=== PATIENT | female | born 1955 | race Caucasian/White ===

== ENCOUNTER 2017-12-01 18:13 | Emergency (ER) | payer MEDICARE, OTHER ==
[~2017-12-01] VITALS: Ht 162.6 cm; Wt 101.6 kg
[~2017-12-01 18:13] MED LIST: ACET325T9 PO; ARIP30TA4 PO; ASCO500T3 PO; ATEN50TA PO; CYCL1DRO EACHEYE; DICL100G18 TP; DIGO250T PO; DIPH25CA58 PO; DOXY100T PO; FURO40TA4 PO; GABA-586 PO; HYDR12.58 PO; LEVO112T4 PO; LEVO125T5 PO; LEVO200V9 IV; LISI2.5T PO; LORA10TA68 PO; MAGN400O7 PO; METF500T16 PO; MULT-206 PO; MULT1TAB52 PO; MUPI15CR TP; OMEG300C PO; OMEG500C3 PO; OTHER; RISP0.2519 PO; SERT100T8 PO; SOLI5TAB2 PO; TRAM50TA PO; TRAZ-85 PO; VITA200C PO; WARF-31 PO; WARF3TAB50 PO; WARF4TAB68 PO; ZOLP5TAB PO; [UNRECOGNIZED DRUG - CODE] OU
--- NOTE | 2017-12-01 18:31 | PHYS DOC ---
Past Medical History Past Medical History: A-Fib, Anxiety, Diabetes-Type II, Hypertension, Schizophrenia, Other Additional Past Medical Histor: lymphedema. Past Surgical History: Cholecystectomy, Tonsillectomy, Other Additional Past Surgical Histo: pyloric stenosis as . Alcohol Use: None Drug Use: None Adult General Chief Complaint Chief Complaint: ABNORMAL LABS [facility] HPI Patient is a 62 year old female who presents with elevated digoxin level. She states that she did not feel symptomatic today and denies any lethargy, fatigue , delirium, confusion, disorientation, weakness, abdominal pain, nausea, vomiting, visual changes. She denies any recent changes in her medication. At the nursing facility her digoxin level was found to be 2.9. She states that she has not had any chest pain or shortness of breath today. She states that yesterday she had a mild nonradiating left-sided retrosternal chest pain that she states she thought was actually in her breast itself and states that she has had this sensation multiple times in the past. Review of Systems Review of Systems Constitutional: Denies fever or chills Eyes: Denies change in visual acuity, redness, or eye pain HENT: Denies nasal congestion or sore throat Respiratory: Denies cough or shortness of breath Cardiovascular: No additional information not addressed in HPI GI: Denies abdominal pain, nausea, vomiting, bloody stools or diarrhea : Denies dysuria or hematuria Musculoskeletal: Denies back pain or joint pain Integument: Denies rash or skin lesions Neurologic: Denies headache, focal weakness or sensory changes Endocrine: Denies polyuria or polydipsia All other systems were reviewed and found to be within normal limits, except as documented in this note. Family History Family History noncontributory Allergies Allergies Allergies Coded Allergies Type Severity Reaction Last Updated Verified Penicillins Allergy Intermediate Rash 12/08/14 Yes I S O L A T I O N *CONTACT* Allergy Unknown 12/08/14 Yes Physical Exam Physical Exam GENERAL: Awake, alert, well appearing, nontoxic, pleasant, no acute distress HEAD/NECK/EYES: Normocephalic, Neck supple, PERRL, trachea midline, no JVD ENT Airway patent, mucous membranes moist RESP: Nontachypneic, no respiratory distress, normal breath sounds bilaterally CV: Mildly irregular rhythm, less than 2 second capillary refill peripherally ABD/GI: Soft, non-tender, no guarding, no rebound, no palpable pulsatile mass BACK: Inspection NL EXT: Neurovascularly intact, no deformities , bilateral lower extremity pitting edema, nontender SKIN: Warm, dry NEURO: Oriented X3, normal speech, no motor deficits, no sensory deficits, CN II - XII intact PSYCH: Cooperative, appropriate affect EKG EKG EKG interpreted by me at 1823 reveals atrial fibrillation with mildly scooped out appearance of the ST segment consistent with digoxin morphology, no STEMI, qtc 539 Radiology/Procedures Radiology/Procedures [] Course & Med Decision Making Course & Med Decision Making Pertinent Labs and Imaging studies reviewed. (See chart for details) [] Dragon Disclaimer Dragon Disclaimer This electronic medical record was generated, in whole or in part, using a voice recognition dictation system. Departure Departure Referrals: ROSA HENDERSON (PCP) HYACINTH LOCO DO Dec 01, 2017 18:31
[2017-12-01 18:47] LABS: BASO % 0 % (0-3); EOS # 0.2 x10^3/uL (0.0-0.7); EOS % 3 % (0-3); HEMATOCRIT 31.3 % (36.0-47.0); HEMOGLOBIN 10.2 g/dL (12.0-15.5); LYMPH # 1.1 x10^3/uL (1.0-4.8); LYMPH % 16 % (24-48); MEAN CORPUSCULAR HEMOGLOBIN 23 pg (25-35); MEAN CORPUSCULAR HGB CONC 33 g/dL (31-37); MEAN CORPUSCULAR VOLUME 70 fL (79-100); MONO # 0.5 x10^3/uL (0.0-1.1); MONO % 7 % (0-9); NEUT # 5.1 x10^3uL (1.8-7.7); NEUT % 74 % (31-73); PLATELET COUNT 223 x10^3/uL (140-400); RED BLOOD COUNT 4.47 x10^6/uL (3.50-5.40); WHITE BLOOD COUNT 6.9 x10^3/uL (4.0-11.0)
[2017-12-01 18:59] LABS: ANION GAP 6 (6-14); BLOOD UREA NITROGEN 20 mg/dL (7-20); BUN/CREATININE RATIO 20 (6-20); CALCIUM 8.6 mg/dL (8.5-10.1); CARBON DIOXIDE 35 mmol/L (21-32); CHLORIDE 98 mmol/L (98-107); GFR 55.8; GLUCOSE 123 mg/dL (70-99); POTASSIUM 3.2 mmol/L (3.5-5.1); SODIUM 139 mmol/L (136-145)
[2017-12-01 19:03] LABS: ALBUMIN 3.1 g/dL (3.4-5.0); ALBUMIN/GLOBULIN RATIO 0.6 (1.0-1.7); ALK PHOS 106 U/L (46-116); ALT (SGPT) 18 U/L (14-59); AST (SGOT) 16 U/L (15-37); DIG 1.1 ng/mL (0.9-2.0); TOTAL BILIRUBIN 0.4 mg/dL (0.2-1.0)
[2017-12-01] MEDS ORDERED: POTASSIUM CHLORIDE 20 MEQ TABLET.ER. PO ONE (19:45)
[2017-12-01 19:46] LABS: ANISOCYTOSIS MOD; HYPOCHROMIA MOD; PLT ESTIMATE ADEQUATE (ADEQUATE)
[2017-12-01 19:47] LABS: MICROCYTOSIS MARKED
[2017-12-01 20:46] VITALS: BP 121/74
--- NOTE | 2017-12-02 07:12 | EKG ---
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
== END 2017-12-01 21:22 | disposition home or self-care (01) ==
LOC: ER 18:13
DX: E87.6 Hypokalemia (principal); R07.2 Precordial pain; R79.89 Other specified abnormal findings of blood chemistry; I48.91 Unspecified atrial fibrillation; E11.9 Type 2 diabetes mellitus without complications; F41.9 Anxiety disorder, unspecified; I10 Essential (primary) hypertension; F20.9 Schizophrenia, unspecified; Z88.0 Allergy status to penicillin; Z91.041 Radiographic dye allergy status
CPT/HCPCS: 36415; 80053; 80162; 84484; 85025; 93005; 99285-25

== ENCOUNTER 2019-09-11 14:36 | Emergency (ER) | payer MEDICARE, MEDICAID ==
[~2019-09-11] VITALS: Ht 170.2 cm; Wt 88.0 kg
[~2019-09-11 14:36] MED LIST changes: -DICL100G18 TP; +DICL100G54 TP; -DIGO250T PO; +DIGO250T3 PO; -GABA-586 PO; +GABA300C18 PO; -LEVO112T4 PO; +LEVO112T49 PO; +MULT-445 PO; -MULT1TAB52 PO; +TRAZ-118 PO; -TRAZ-85 PO; +WARF5TAB2 PO
[2019-09-11] MEDS ORDERED: ACETAMINOPHEN 500 MG TABLET PO ONE (14:45)
[2019-09-11] MEDS ORDERED: IV NORMAL SALINE 500ML BAG 500 ML IV ONE (15:00)
[2019-09-11 15:29] LABS: BASO % 1 % (0-3); EOS % 0 % (0-3); HEMATOCRIT 28.2 % (36.0-47.0); HEMOGLOBIN 9.4 g/dL (12.0-15.5); LYMPH # 0.4 x10^3/uL (1.0-4.8); LYMPH % 11 % (24-48); MEAN CORPUSCULAR HEMOGLOBIN 23 pg (25-35); MEAN CORPUSCULAR HGB CONC 33 g/dL (31-37); MEAN CORPUSCULAR VOLUME 70 fL (79-100); MONO # 0.3 x10^3/uL (0.0-1.1); MONO % 9 % (0-9); NEUT # 3.2 x10^3/uL (1.8-7.7); NEUT % 80 % (31-73); PLATELET COUNT 213 x10^3/uL (140-400); RED BLOOD COUNT 4.06 x10^6/uL (3.50-5.40)
--- NOTE | 2019-09-11 15:35 | RAD ---
AP portable chest 09/11/2019. Reason for exam: Fever. COVID19 positive. Comparison is made with a study of 05/17/2019. Some increased markings are again seen bilaterally and appear similar. No new infiltrate is identified and there is no apparent pleural fluid. Heart size is unchanged and probably normal. IMPRESSION: No definite acute infiltrate. Electronically signed by: Chacorta Granados Jr., MD (09/11/2019 3:32 PM) [id number]
[2019-09-11 15:36] LABS: CALCIUM 7.3 mg/dL (8.5-10.1); CREATININE 1.2 mg/dL (0.6-1.0); GFR 44.9; POTASSIUM 4.7 mmol/L (3.5-5.1)
[2019-09-11 15:42] LABS: ALBUMIN 2.9 g/dL (3.4-5.0); ALBUMIN/GLOBULIN RATIO 0.6 (1.0-1.7); TOTAL BILIRUBIN 0.4 mg/dL (0.2-1.0); TOTAL PROTEIN 8.1 g/dL (6.4-8.2)
[2019-09-11 15:58] LABS: ANISOCYTOSIS SLIGHT; HYPOCHROMIA SLIGHT; MICROCYTOSIS MOD; PLT ESTIMATE ADEQUATE (ADEQUATE); POIKILOCYTOSIS SLIGHT
--- NOTE | 2019-09-11 16:02 | PHYS DOC ---
Past Medical History Past Medical History: A-Fib, Anxiety, Bipolar, Diabetes-Type I, Hypertension, Schizophrenia, Other Additional Past Medical Histor: lymphedema. Past Surgical History: Cholecystectomy, Tonsillectomy, Other Additional Past Surgical Histo: pyloric stenosis as . Smoking Status: Former Smoker Alcohol Use: None Drug Use: None General Adult EDM: Chief Complaint: FEVER HPI: HPI: Patient is a 64-year-old female with multiple medical problems including recently diagnosed COVID 19. She resides in a care home where all residents were tested she happened to test positive. She states she has not really had any upper respiratory type symptoms at all no cough or congestion. She does state that she has had cellulitis in her lower extremities in the past and they happen to be more red today. She states 1 of the nurses at the care home dressed them yesterday. residential reports the only reason they sent her to the emergency department today was because of fever. [] Review of Systems: Review of Systems: Constitutional: Reports fever. [] Eyes: Denies change in visual acuity. [] HENT: Denies nasal congestion or sore throat. [] Respiratory: Denies cough or shortness of breath. [] Cardiovascular: Denies chest pain or edema. [] GI: Denies abdominal pain, nausea, vomiting, bloody stools or diarrhea. [] : Denies dysuria. [] Musculoskeletal: Denies back pain or joint pain. [] Integument: Chronic venous insufficiency [] Neurologic: Denies headache, focal weakness or sensory changes. [] Endocrine: Denies polyuria or polydipsia. [] Lymphatic: Denies swollen glands. [] Psychiatric: Depressed affect [] Heart Score: Risk Factors: Risk Factors: DM, Current or recent (<one month) smoker, HTN, HLP, family history of CAD, obesity. Risk Scores: Score 0 - 3: 2.5% MACE over next 6 weeks - Discharge Home Score 4 - 6: 20.3% MACE over next 6 weeks - Admit for Clinical Observation Score 7 - 10: 72.7% MACE over next 6 weeks - Early Invasive Strategies Current Medications: Current Medications Medications (Trade) Dose Ordered Sig/Jerson Start Time Stop Time Status Last Admin Dose Admin Acetaminophen (Tylenol) 1,000 mg 1X ONCE 09/11/19 14:45 09/11/19 14:46 DC 09/11/19 15:01 1,000 MG Cefazolin Sodium/ Dextrose 50 ml @ 100 mls/hr 1X ONCE 09/11/19 15:00 09/11/19 15:29 DC 09/11/19 15:18 100 MLS/HR Sodium Chloride 500 ml @ 500 mls/hr 1X ONCE 09/11/19 15:00 09/11/19 15:59 09/11/19 15:16 500 MLS/HR Allergies: Allergies: Allergies Coded Allergies Type Severity Reaction Last Updated Verified Penicillins Allergy Intermediate Rash 12/08/14 Yes I S O L A T I O N *CONTACT* Allergy Unknown 12/08/14 Yes Physical Exam: PE: Constitutional: Well developed, well nourished, no acute distress, non-toxic appearance. [] HENT: Normocephalic, atraumatic, bilateral external ears normal, oropharynx moist, no oral exudates, nose normal. [] Eyes: PERRLA, EOMI, conjunctiva normal, no discharge. [] Neck: Normal range of motion, no tenderness, supple, no stridor. [] Cardiovascular:Heart rate regular rhythm, no murmur [] Lungs & Thorax: Bilateral breath sounds clear to auscultation [] Abdomen: Bowel sounds normal, soft, no tenderness, no masses, no pulsatile masses. [] Skin: Warm, dry, no erythema, no rash. [] Back: No tenderness, no CVA tenderness. [] Extremities: Bilateral lower extremities are erythematous from proximal lower leg distal warm to touch. [] Neurologic: Alert and oriented X 3, normal motor function, normal sensory function, no focal deficits noted. [] Psychologic: Depressed affect [] Current Patient Data: Labs: Laboratory Tests Test 09/11/19 15:10 White Blood Count 4.0 x10^3/uL (4.0-11.0) Red Blood Count 4.06 x10^6/uL (3.50-5.40) Hemoglobin 9.4 g/dL (12.0-15.5) L Hematocrit 28.2 % (36.0-47.0) L Mean Corpuscular Volume 70 fL (79-100) L Mean Corpuscular Hemoglobin 23 pg (25-35) L Mean Corpuscular Hemoglobin Concent 33 g/dL (31-37) Red Cell Distribution Width 18.0 % (11.5-14.5) H Platelet Count 213 x10^3/uL (140-400) Neutrophils (%) (Auto) 80 % (31-73) H Lymphocytes (%) (Auto) 11 % (24-48) L Monocytes (%) (Auto) 9 % (0-9) Eosinophils (%) (Auto) 0 % (0-3) Basophils (%) (Auto) 1 % (0-3) Neutrophils # (Auto) 3.2 x10^3/uL (1.8-7.7) Lymphocytes # (Auto) 0.4 x10^3/uL (1.0-4.8) L Monocytes # (Auto) 0.3 x10^3/uL (0.0-1.1) Eosinophils # (Auto) 0.0 x10^3/uL (0.0-0.7) Basophils # (Auto) 0.0 x10^3/uL (0.0-0.2) Platelet Estimate Adequate (ADEQUATE) Hypochromasia Slight Poikilocytosis Slight Anisocytosis Slight Microcytosis Mod Sodium Level 133 mmol/L (136-145) L Potassium Level 4.7 mmol/L (3.5-5.1) Chloride Level 95 mmol/L (98-107) L Carbon Dioxide Level 31 mmol/L (21-32) Anion Gap 7 (6-14) Blood Urea Nitrogen 18 mg/dL (7-20) Creatinine 1.2 mg/dL (0.6-1.0) H Estimated GFR (Cockcroft-Gault) 44.9 BUN/Creatinine Ratio 15 (6-20) Glucose Level 89 mg/dL (70-99) Lactic Acid Level 1.4 mmol/L (0.4-2.0) Calcium Level 7.3 mg/dL (8.5-10.1) L Total Bilirubin 0.4 mg/dL (0.2-1.0) Aspartate Amino Transferase (AST) 22 U/L (15-37) Alanine Aminotransferase (ALT) 21 U/L (14-59) Alkaline Phosphatase 79 U/L (46-116) Total Protein 8.1 g/dL (6.4-8.2) Albumin 2.9 g/dL (3.4-5.0) L Albumin/Globulin Ratio 0.6 (1.0-1.7) L Laboratory Tests 09/11/19 15:10 Laboratory Tests 09/11/19 15:10 Vital Signs: Vital Signs Date Time Temp Pulse Resp B/P (MAP) Pulse Ox O2 Delivery O2 Flow Rate FiO2 09/11/19 14:50 103.3 92 20 141/66 (91) 96 Room Air 103.3 EKG: EKG: [] Radiology/Procedures: Radiology/Procedures: []REASON: fever, COVID 19 positive PROCEDURE: CHEST AP ONLY AP portable chest 09/11/2019. Reason for exam: Fever. COVID19 positive. Comparison is made with a study of 05/17/2019. Some increased markings are again seen bilaterally and appear similar. No new infiltrate is identified and there is no apparent pleural fluid. Heart size is unchanged and probably normal. IMPRESSION: No definite acute infiltrate. Course & Med Decision Making: Course & Med Decision Making Pertinent Labs and Imaging studies reviewed. (See chart for details) [ED course: Evaluation reveals a 64-year-old female with positive COVID who is non-hypoxic and a fever. I suspect her fever is related to the lower extremity cellulitis. There is no white count negative lactic acid I believe she is safe to go home with antibiotics.] Dragon Disclaimer: Dragon Disclaimer: This electronic medical record was generated, in whole or in part, using a voice recognition dictation system. Departure Departure Impression: Primary Impression: Cellulitis Qualified Codes: L03.119 - Cellulitis of unspecified part of limb Additional Impression: COVID-19 Disposition: 01 HOME, SELF-CARE Condition: STABLE Referrals: ROSA HENDERSON (PCP) Patient Instructions: Cellulitis Additional Instructions: Thank you for visiting [facility]. We appreciate you trusting us with your care. If any additional problems come up [facility]'t hesitate [facility] Please follow up with your primary care provider so they can plan additional care if needed and know about the problem that you had. If symptoms worsen come back to the Emergency Department. Any concerning symptoms that start such as chest pain, shortness of air, weakness or numbness on one side of the body, running high fevers or any other concerning symptoms return to the ER. You have a viral syndrome which may include symptoms like muscle aches, fevers, chills, runny nose, cough, sneezing, sore throat, vomiting, or diarrhea. One of the potential viruses that you may have is SARS-CoV-2, the virus that causes COVID-19, also known as the Coronavirus. You are just as likely to have a different viral infection such as the common cold, flu, etc. Most patients with the Coronavirus have mild symptoms and recover on their own. Resting, staying hydrated, and sleep from known cases can be helpful. As of todays visit, you are well enough to go home and treat your symptoms with oral fluids and over the counter medications. Coronavirus testing is not performed on most people with mild symptoms who are being discharged from the emergency department. If Coronavirus testing was performed the results will not be available for possibly up to 2-3 days. If your result is positive you will be contacted. Please follow the following precautions at home: 1) Stay home except to get medical care. 2) As advised by the CDC we recommend you stay in your home and minimize contact with other people. We do not want you to spread the infection. 3) Those who are older or have significant medical issues may have more severe symptoms from this infection. We recommend self-isolation,FOR AT LEAST 7 DAYS after your 1st day of symptoms. AFTER you feel better please wait AT LEAST ANOTHER WEEK before returning to regular activities and being around other people! 4) IF you become sicker and have difficulty breathing, chest pain, unable to eat/drink, severe vomiting, diarrhea, or weakness you may need to return to the Emergency Department. 5) You should restrict activities outside your home, except for getting medical care. DO NOT go to work, school, or public areas. Avoid using public transportation, ride sharing, or taxis. 6) Separate yourself from other people in your home. You should use a separate bathroom if possible. 7) Avoid sharing personal household items such as dishes, cups, eating utensils, towels, etc. 8) Clean all high touch surfaces every day (door knobs, counter tops, etc). Use a household cleaning spray or wipe per label instructions. 9) Clean your hands often. Wash your hands with soap and water for at least 20 seconds. 10) Cover your mouth and nose with a tissue when you cough or sneeze. 11) Throw used tissues in a trash can and immediately wash your hands. For additional resources please visit the CDC website or the [facility] ([phone]). Scripts Cephalexin (KEFLEX) 500 Mg Capsule 1 CAP PO TID, #30 CAP Prov: ZACHARY HODGES DO 09/11/19 Justicifation of Admission Dx: Justifications for Admission: Justification of Admission Dx: No ZACHARY HODGES DO Sep 11, 2019 16:02
[2019-09-11 16:37] LABS: BILIRUBIN,URINE NEGATIVE (NEG); CLARITY,URINE CLOUDY; COLOR,URINE YELLOW; NITRITE,URINE NEGATIVE (NEG); PROTEIN,URINE NEGATIVE (NEG-TRACE); UROBILINOGEN,URINE 0.2 mg/dL (0.2 mg/dL)
[2019-09-11] MEDS ORDERED: IBUPROFEN 200 MG TABLET. PO ONE (16:45)
[2019-09-11 16:55] LABS: BACTERIA,URINE 0 /HPF (0-FEW); RBC,URINE >40 /HPF (0-2); SQUAMOUS EPITHELIAL CELL,UR FEW /LPF; WBC,URINE OCC /HPF (0-4)
[2019-09-11] MEDS ORDERED: CEPH-264 PO (17:01)
[2019-09-11] MEDS ORDERED: HYDROcodone/APAP 5/325MG 1 TAB TABLET PO ONE (18:45)
[2019-09-11 20:08] VITALS: BP 112/54
== END 2019-09-11 20:06 | disposition home or self-care (01) ==
LOC: ER 14:36
DX: L03.116 Cellulitis of left lower limb (principal); L03.115 Cellulitis of right lower limb; U07.1 COVID-19; I87.2 Venous insufficiency (chronic) (peripheral); F32.9 Major depressive disorder, single episode, unspecified; I48.91 Unspecified atrial fibrillation; F20.9 Schizophrenia, unspecified; I10 Essential (primary) hypertension; E10.9 Type 1 diabetes mellitus without complications; Z87.891 Personal history of nicotine dependence; Z88.0 Allergy status to penicillin; Z91.041 Radiographic dye allergy status
CPT/HCPCS: 36415; 71045; 80053; 81001; 83605; 85025; 87040; 96365; 99284; J0696; J7040; J0690

== ENCOUNTER 2019-10-14 22:33 | Emergency (ER) | payer MEDICARE, MEDICAID ==
[~2019-10-14] VITALS: Ht 167.6 cm; Wt 89.0 kg
[~2019-10-14 22:33] MED LIST changes: +CEPH-264 PO
[2019-10-14] MEDS ORDERED: NEOMY/BACITR/POLYMYXIN OINT PACKET. TP ONE (23:00)
[2019-10-14 23:03] LABS: BASO # 0.1 x10^3/uL (0.0-0.2); BASO % 1 % (0-3); EOS # 0.3 x10^3/uL (0.0-0.7); EOS % 4 % (0-3); HEMATOCRIT 29.3 % (36.0-47.0); HEMOGLOBIN 9.7 g/dL (12.0-15.5); LYMPH # 1.3 x10^3/uL (1.0-4.8); LYMPH % 19 % (24-48); MEAN CORPUSCULAR HEMOGLOBIN 24 pg (25-35); MEAN CORPUSCULAR HGB CONC 33 g/dL (31-37); MEAN CORPUSCULAR VOLUME 71 fL (79-100); MONO # 0.6 x10^3/uL (0.0-1.1); MONO % 8 % (0-9); NEUT # 4.8 x10^3/uL (1.8-7.7); NEUT % 68 % (31-73); PLATELET COUNT 241 x10^3/uL (140-400); RED BLOOD COUNT 4.14 x10^6/uL (3.50-5.40); RED CELL DISTRIBUTION WIDTH 18.2 % (11.5-14.5)
[2019-10-14 23:12] LABS: PROTHROMBIN TIME PATIENT 24.3 SEC (11.7-14.0)
[2019-10-14 23:21] LABS: CALCIUM 8.2 mg/dL (8.5-10.1); CREATININE 1.1 mg/dL (0.6-1.0); GFR 49.7
[2019-10-14 23:23] LABS: DIG 0.6 ng/mL (0.9-2.0)
[2019-10-14 23:25] LABS: VAL ACID 38 mcg/mL (50-100)
[2019-10-14 23:27] LABS: ALBUMIN/GLOBULIN RATIO 0.5 (1.0-1.7); MAGNESIUM 1.8 mg/dL (1.8-2.4); TOTAL BILIRUBIN 0.3 mg/dL (0.2-1.0); TOTAL PROTEIN 8.5 g/dL (6.4-8.2)
[2019-10-14 23:35] LABS: ANISOCYTOSIS SLIGHT; MICROCYTOSIS MARKED; PLT ESTIMATE ADEQUATE (ADEQUATE); POLYCHROMASIA SLIGHT
[2019-10-15 00:29] LABS: BILIRUBIN,URINE NEGATIVE (NEG); CLARITY,URINE CLEAR; COLOR,URINE YELLOW; NITRITE,URINE NEGATIVE (NEG); PROTEIN,URINE NEGATIVE (NEG-TRACE); UROBILINOGEN,URINE 0.2 mg/dL (0.2 mg/dL)
[2019-10-15 00:33] LABS: BACTERIA,URINE FEW /HPF (0-FEW); SQUAMOUS EPITHELIAL CELL,UR FEW /LPF
[2019-10-15] MEDS ORDERED: LORA0.5T96 PO (01:29)
--- NOTE | 2019-10-15 01:29 | PHYS DOC ---
Past Medical History Past Medical History: A-Fib, Depression, Diabetes-Type II, Schizophrenia Additional Past Medical Histor: lymphedema. Past Surgical History: Cholecystectomy Additional Past Surgical Histo: pyloric stenosis as infant. Smoking Status: Never Smoker Alcohol Use: None Drug Use: None General Adult EDM: Chief Complaint: ALTERED MENTAL STATUS HPI: HPI: Patient is a 64 year old female presents via EMS from nursing facility with report of increased sleepiness when she was having a conversation with another individual. Patient reports she has not been sleeping well secondary to increased anxiety. Reports she has concerns that she will be placed in a mental health facility. Reports history of chronic venous stasis to bilateral lower extremities. Patient also reports she has nervous habit of picking at her her legs and causing ulcerations. Patient reports she has had similar type of issues since 2013. Denies trauma. Denies chest pain. Denies fever or chills. Review of Systems: Review of Systems: Constitutional: Denies fever or chills Eyes: Denies redness or eye pain HENT: Denies nasal congestion or sore throat Respiratory: Denies cough or shortness of breath Cardiovascular: Denies chest pain or palpitations GI: Denies abdominal pain, nausea, or vomiting : Denies dysuria or hematuria Musculoskeletal: Denies back pain or joint pain Integument: Denies rash or skin lesions Neurologic: Denies headache, focal weakness or sensory changes; increase sleepiness Complete systems were reviewed and found to be within normal limits, except as documented in this note. Current Medications: Current Medications Medications (Trade) Dose Ordered Sig/Jerson Start Time Stop Time Status Last Admin Dose Admin Neomycin/ Polymyxin/ Bacitracin (Triple Antibiotic Ointment) 2 pkt 1X ONCE 10/14/19 23:00 10/14/19 23:01 DC Allergies: Allergies: Allergies Coded Allergies Type Severity Reaction Last Updated Verified Penicillins Allergy Intermediate Rash 12/08/14 Yes I S O L A T I O N *CONTACT* Allergy Unknown 12/08/14 Yes Physical Exam: PE: Constitutional: Well developed, well nourished, no acute distress, non-toxic appearance HENT: Normocephalic, atraumatic Eyes: PERRL, EOMI, conjunctiva normal, no discharge Neck: Normal range of motion, no tenderness, supple Lungs & Thorax: No respiratory distress, equal chest rise and fall Abdomen: Soft, no tenderness, no guarding Skin: Warm, dry, chronic venous stasis noted to bilateral lower extremities with several open wounds which patient reports had been secondary to her picking. Extremities: No tenderness, ROM intact, no edema Neurologic: Alert and oriented X 3, no focal deficits noted Psychologic: Affect normal, judgment normal, denies suicidal or homicidal ideation. Current Patient Data: Labs: Laboratory Tests Test 10/14/19 22:55 10/15/19 00:10 White Blood Count 7.0 x10^3/uL (4.0-11.0) Red Blood Count 4.14 x10^6/uL (3.50-5.40) Hemoglobin 9.7 g/dL (12.0-15.5) L Hematocrit 29.3 % (36.0-47.0) L Mean Corpuscular Volume 71 fL (79-100) L Mean Corpuscular Hemoglobin 24 pg (25-35) L Mean Corpuscular Hemoglobin Concent 33 g/dL (31-37) Red Cell Distribution Width 18.2 % (11.5-14.5) H Platelet Count 241 x10^3/uL (140-400) Neutrophils (%) (Auto) 68 % (31-73) Lymphocytes (%) (Auto) 19 % (24-48) L Monocytes (%) (Auto) 8 % (0-9) Eosinophils (%) (Auto) 4 % (0-3) H Basophils (%) (Auto) 1 % (0-3) Neutrophils # (Auto) 4.8 x10^3/uL (1.8-7.7) Lymphocytes # (Auto) 1.3 x10^3/uL (1.0-4.8) Monocytes # (Auto) 0.6 x10^3/uL (0.0-1.1) Eosinophils # (Auto) 0.3 x10^3/uL (0.0-0.7) Basophils # (Auto) 0.1 x10^3/uL (0.0-0.2) Platelet Estimate Adequate (ADEQUATE) Polychromasia Slight Anisocytosis Slight Microcytosis Marked Prothrombin Time 24.3 SEC (11.7-14.0) H Prothrombin Time INR 2.2 (0.8-1.1) H Activated Partial Thromboplast Time 78 SEC (24-38) H Sodium Level 131 mmol/L (136-145) L Potassium Level 4.0 mmol/L (3.5-5.1) Chloride Level 92 mmol/L (98-107) L Carbon Dioxide Level 32 mmol/L (21-32) Anion Gap 7 (6-14) Blood Urea Nitrogen 20 mg/dL (7-20) Creatinine 1.1 mg/dL (0.6-1.0) H Estimated GFR (Cockcroft-Gault) 49.7 BUN/Creatinine Ratio 18 (6-20) Glucose Level 138 mg/dL (70-99) H Lactic Acid Level 1.6 mmol/L (0.4-2.0) Calcium Level 8.2 mg/dL (8.5-10.1) L Magnesium Level 1.8 mg/dL (1.8-2.4) Total Bilirubin 0.3 mg/dL (0.2-1.0) Aspartate Amino Transferase (AST) 16 U/L (15-37) Alanine Aminotransferase (ALT) 12 U/L (14-59) L Alkaline Phosphatase 100 U/L (46-116) Ammonia < 10 mcmol/L (11-34) L Creatine Kinase 91 U/L (26-192) Creatine Kinase MB (Mass) 1.1 ng/mL (0.0-3.6) Creatine Kinase MB Relative Index 1.2 % (0-4) Troponin I Quantitative < 0.017 ng/mL (0.000-0.055) Total Protein 8.5 g/dL (6.4-8.2) H Albumin 3.0 g/dL (3.4-5.0) L Albumin/Globulin Ratio 0.5 (1.0-1.7) L Digoxin Level 0.6 ng/mL (0.9-2.0) L Digoxin Last Dose Date Digoxin Last Dose Time Valproic Acid Level 38 mcg/mL (50-100) L Valproic Acid Last Dose Date Valproic Acid Last Dose Time Urine Collection Type Unknown Urine Color Yellow Urine Clarity Clear Urine pH 6.0 (<5.0-8.0) Urine Specific [place] 1.010 (1.000-1.030) Urine Protein Negative mg/dL (NEG-TRACE) Urine Glucose (UA) Negative mg/dL (NEG) Urine Ketones (Stick) Negative mg/dL (NEG) Urine Blood Negative (NEG) Urine Nitrite Negative (NEG) Urine Bilirubin Negative (NEG) Urine Urobilinogen Dipstick 0.2 mg/dL (0.2 mg/dL) Urine Leukocyte Esterase Small (NEG) Urine RBC 1-2 /HPF (0-2) Urine WBC 1-4 /HPF (0-4) Urine Squamous Epithelial Cells Few /LPF Urine Transitional Epithelial Cells Few /LPF Urine Bacteria Few /HPF (0-FEW) Urine Mucus Slight /LPF Laboratory Tests 10/14/19 22:55 Laboratory Tests 10/14/19 22:55 Vital Signs: Vital Signs Date Time Temp Pulse Resp B/P (MAP) Pulse Ox O2 Delivery O2 Flow Rate FiO2 10/14/19 22:40 97.8 16 178/84 (115) 100 Room Air 97.8 EKG: EKG: @0124 A fib at 53bpm, NO ST elevation, QRS 88ms, QT/QTc 446/421ms Radiology/Procedures: Radiology/Procedures: [] Course & Med Decision Making: Course & Med Decision Making Pertinent Lab studies reviewed. (See chart for details) Patient presents from senior care with report of increased sleepiness when she was having a conversation with another individual. Patient reports she is been having problems with insomnia secondary to anxiety. Afebrile. Patient neurologically intact. Chronic venous stasis ulcers with scattered self inflicted abrasions noted. Wounds cleaned and dressed. Labs obtained and posted to chart. Patient stable for discharge with outpatient follow-up with PCP. Discussed findings and plan with patient, who acknowledge understanding and agreement. Seth Disclaimer: Seth Disclaimer: This electronic medical record was generated, in whole or in part, using a voice recognition dictation system. Departure Departure Impression: Primary Impression: Sleepiness Additional Impressions: Venous stasis dermatitis of both lower extremities Anxiety Hx of insomnia Disposition: HOME, SELF-CARE (back to senior care) Condition: STABLE Referrals: ROSA HENDERSON (PCP) Patient Instructions: Anxiety and Panic Attacks, [id number], Insomnia, Venous Stasis and Chronic Venous Insufficiency, Wound Care, [id number] Scripts Lorazepam (ATIVAN) 0.5 Mg Tablet 0.5 MG PO HS PRN for INSOMNIA, #14 TAB Prov: DECLAN MENESES DO 10/15/19 Justicifation of Admission Dx: Justifications for Admission: Justification of Admission Dx: N/A DECLAN MENESES DO Oct 15, 2019 01:29
[2019-10-15 05:20] VITALS: BP 161/87
--- NOTE | 2019-10-17 11:25 | EKG ---
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
== END 2019-10-15 05:20 | disposition home or self-care (01) ==
LOC: ER 22:33
DX: G47.00 Insomnia, unspecified (principal); I87.8 Other specified disorders of veins; L30.9 Dermatitis, unspecified; F41.8 Other specified anxiety disorders; I48.20 Chronic atrial fibrillation, unspecified; F32.9 Major depressive disorder, single episode, unspecified; E11.9 Type 2 diabetes mellitus without complications; F20.9 Schizophrenia, unspecified; Z90.49 Acquired absence of other specified parts of digestive tract; Z98.890 Other specified postprocedural states; Z88.0 Allergy status to penicillin; Z88.8 Allergy status to other drugs, medicaments and biological substances
CPT/HCPCS: 36415; 80053; 80162; 80164; 81001; 82140; 82553; 83605; 83735; 84484; 85025; 85610; 85730; 87086; 93005; 99284

== ENCOUNTER 2021-08-16 23:49 | Inpatient (IN) | payer MEDICARE, MEDICAID ==
[~2021-08-16] VITALS: Ht 167.6 cm; Wt 89.5 kg
[~2021-08-16 23:49] MED LIST changes: -LISI2.5T PO; +LISI2.5T12 PO; +LORA0.5T96 PO; +SERT-268 PO; -SERT100T8 PO
[2021-08-17] MEDS ORDERED: fentaNYL PF VIAL 100 MCG/2 ML VIAL IVP ONE
[2021-08-17 00:14] LABS: BASO % 0 % (0-3); EOS # 0.2 x10^3/uL (0.0-0.7); EOS % 3 % (0-3); HEMATOCRIT 33.6 % (36.0-47.0); HEMOGLOBIN 11.1 g/dL (12.0-15.5); LYMPH # 1.3 x10^3/uL (1.0-4.8); LYMPH % 17 % (24-48); MEAN CORPUSCULAR HEMOGLOBIN 27 pg (25-35); MEAN CORPUSCULAR HGB CONC 33 g/dL (31-37); MEAN CORPUSCULAR VOLUME 82 fL (79-100); MONO # 0.8 x10^3/uL (0.0-1.1); MONO % 11 % (0-9); NEUT % 68 % (31-73); PLATELET COUNT 129 x10^3/uL (140-400); RED CELL DISTRIBUTION WIDTH 16.5 % (11.5-14.5); WHITE BLOOD COUNT 7.3 x10^3/uL (4.0-11.0)
[2021-08-17 00:26] LABS: PROTHROMBIN TIME PATIENT 16.7 SEC (11.7-14.0)
[2021-08-17 00:28] LABS: CALCIUM 8.3 mg/dL (8.5-10.1); GFR 55.1; POTASSIUM 4.2 mmol/L (3.5-5.1)
[2021-08-17 00:34] LABS: ALBUMIN 2.9 g/dL (3.4-5.0); ALBUMIN/GLOBULIN RATIO 0.6 (1.0-1.7); TOTAL BILIRUBIN 0.5 mg/dL (0.2-1.0); TOTAL PROTEIN 7.7 g/dL (6.4-8.2)
--- NOTE | 2021-08-17 00:35 | RAD ---
Two-view right humerus 3 view right elbow and two-view right forearm HISTORY: Pain status post fall 2 view right forearm: AP lateral views. The visualized osseous structures appear normal. 3 view right elbow: AP lateral oblique views. The visualized osseous structures appear normal. 2 view right humerus: AP lateral views. Visualized osseous structures appear normal. IMPRESSION: No acute findings. Electronically signed by: Reji Mera III, MD (08/17/2021 12:33 AM) JUANITO
[2021-08-17] MEDS: IV NORMAL SALINE 1000ML BAG 1,000 ML IV SCH ×3 (01:38→20:10)
--- NOTE | 2021-08-17 01:44 | RAD ---
CT Head W/O Contrast: History: Reason: fall on coumadin, pt in c collar / Spl. Instructions: [id number] / History: Comparison: none Axial images were obtained without contrast. The sarah and white matter appears normal and symmetrical for the patients age. There is no mass effe ct, extraaxial fluid collections or hydrocephalus. There is no gross bleed. There is no focal loss of sarah-white matter distinction to suggest acute ischemia, i.e. stroke. Impression: No acute findings. End of impression CT C-Spine without contrast: Clinical History: Reason: fall on coumadin, pt in c collar / Spl. Instructions: [id number] / Histor y: Technique: Axial helical images of the cervical spine were obtained without contrast, axial coronal and sagittal reconstruction was performed. Findings: The head is tilted to the right and turned to the left. There is moderate levoconvex scoliosis of the cervical spine. In the sagittal plane there is grade 1 anterolisthesis of C3 on C4. There is no loss of vertebral body stature. There is no prevertebral soft tissue swelling. The C1-C 2 relationship is normal. The visualized osseous structures appear normal. Evaluation of the central canal is limited without contrast. There is multiple posterior disc bulges resulting in flattening of the thecal sac. There does not appear to be gross flattening of the cervical cord. There is moderate narrowing of multiple neuroforamen. Impression: 1. Levoconvex scoliosis. 2. The head is tilted to the right and turned to the left. Clinical correlation is suggested. 3. No evidence of fracture. RS Compliance Statement: One or more of the following individualized dose reduction techniques were utilized for this examinat ion: 1. Automated exposure control 2. Adjustment of the mA and/or kV according to patient size 3. Use of iterative reconstruction technique Electronically signed by: Reji Mera III, MD (08/17/2021 1:42 AM) [facility]
--- NOTE | 2021-08-17 02:00 | RAD ---
One view pelvis: History: Pain AP view the pelvis was obtained. There is minimal ascites for axis. Inferior pubic rami on the right. There is obscuration of the bony detail of the sacrum due to overlying bowel gas. Impression: Acute fractures of the superior and inferior pubic rami on the right. Electronically signed by: Reji Mera III, MD (08/17/2021 1:58 AM) [facility]
[2021-08-17 03:50] VITALS: BP 133/73
--- NOTE | 2021-08-17 04:54 | PHYS DOC ---
Past Medical History Past Medical History: A-Fib, Depression, Diabetes-Type II, Schizophrenia Additional Past Medical Histor: lymphedema. Past Surgical History: Cholecystectomy Additional Past Surgical Histo: pyloric stenosis as infant. Smoking Status: Never Smoker Alcohol Use: None Drug Use: None General Adult EDM: Chief Complaint: TRAUMA ACTIVATION HPI: HPI: Patient is a 66 year old female who presents as a trauma activation after suffering a ground-level fall. Patient apparently fell 24 hours ago. She had plain films done at her nursing facility today which revealed right sided superior and inferior pubic rami fractures. She was subsequently transferred here for further evaluation. Patient states that she did hit her head but denies loss conscious. She does take Coumadin. She also has a contusion to her right elbow. She denies any other pain or injury at this time. Review of Systems: Review of Systems: Constitutional: Denies fever or chills. [] Eyes: Denies change in visual acuity. [] HENT: Denies nasal congestion or sore throat. [] Respiratory: Denies cough or shortness of breath. [] Cardiovascular: Denies chest pain or edema. [] GI: Denies abdominal pain, nausea, vomiting, bloody stools or diarrhea. [] : Denies dysuria. [] Musculoskeletal: Denies back pain or joint pain. [] Integument: Denies rash. [] Neurologic: Denies headache, focal weakness or sensory changes. [] Endocrine: Denies polyuria or polydipsia. [] Lymphatic: Denies swollen glands. [] Psychiatric: Denies depression or anxiety. [] Heart Score: C/O Chest Pain: No Family History: Family History: Noncontributory Current Medications: Current Medications Medications (Trade) Dose Ordered Sig/Jerson Start Time Stop Time Status Last Admin Dose Admin Fentanyl Citrate (Fentanyl 2ml Vial) 50 mcg 1X ONCE 08/17/21 00:00 08/17/21 00:10 DC Sodium Chloride 1,000 ml @ 30 mls/hr Q24H 08/17/21 00:00 08/18/21 09:19 08/17/21 01:38 30 MLS/HR Allergies: Allergies: Allergies Coded Allergies Type Severity Reaction Last Updated Verified Penicillins Allergy Intermediate Rash 12/08/14 Yes I S O L A T I O N *CONTACT* Allergy Unknown 9/18/15 Yes Physical Exam: PE: Constitutional: Well developed, well nourished, no acute distress, non-toxic appearance. [] HENT: Normocephalic, atraumatic, bilateral external ears normal, oropharynx moist, no oral exudates, nose normal. [] Eyes: PERRLA, EOMI, conjunctiva normal, no discharge. [] Neck: Posterior cervical midline tenderness to palpation Cardiovascular:Heart rate regular rhythm, no murmur [] Lungs & Thorax: Bilateral breath sounds clear to auscultation [] Abdomen: Bowel sounds normal, soft, no tenderness, no masses, no pulsatile masses. Pelvis is stable to compression Skin: Warm, dry, no erythema, no rash. [] Back: No tenderness, no CVA tenderness. [] Extremities: No tenderness, no cyanosis, no clubbing, ROM intact, no edema. Contusion to the right elbow Neurologic: Alert and oriented X 3, normal motor function, normal sensory function, no focal deficits noted. [] Psychologic: Affect normal, judgement normal, mood normal. [] Current Patient Data: Labs: Laboratory Tests Test 08/17/21 00:04 White Blood Count 7.3 x10^3/uL (4.0-11.0) Red Blood Count 4.10 x10^6/uL (3.50-5.40) Hemoglobin 11.1 g/dL (12.0-15.5) L Hematocrit 33.6 % (36.0-47.0) L Mean Corpuscular Volume 82 fL (79-100) Mean Corpuscular Hemoglobin 27 pg (25-35) Mean Corpuscular Hemoglobin Concent 33 g/dL (31-37) Red Cell Distribution Width 16.5 % (11.5-14.5) H Platelet Count 129 x10^3/uL (140-400) L Neutrophils (%) (Auto) 68 % (31-73) Lymphocytes (%) (Auto) 17 % (24-48) L Monocytes (%) (Auto) 11 % (0-9) H Eosinophils (%) (Auto) 3 % (0-3) Basophils (%) (Auto) 0 % (0-3) Neutrophils # (Auto) 5.0 x10^3/uL (1.8-7.7) Lymphocytes # (Auto) 1.3 x10^3/uL (1.0-4.8) Monocytes # (Auto) 0.8 x10^3/uL (0.0-1.1) Eosinophils # (Auto) 0.2 x10^3/uL (0.0-0.7) Basophils # (Auto) 0.0 x10^3/uL (0.0-0.2) Prothrombin Time 16.7 SEC (11.7-14.0) H Prothrombin Time INR 1.4 (0.8-1.1) H Activated Partial Thromboplast Time 50 SEC (24-38) H Sodium Level 140 mmol/L (136-145) Potassium Level 4.2 mmol/L (3.5-5.1) Chloride Level 103 mmol/L (98-107) Carbon Dioxide Level 31 mmol/L (21-32) Anion Gap 6 (6-14) Blood Urea Nitrogen 30 mg/dL (7-20) H Creatinine 1.0 mg/dL (0.6-1.0) Estimated GFR (Cockcroft-Gault) 55.1 BUN/Creatinine Ratio 30 (6-20) H Glucose Level 122 mg/dL (70-99) H Calcium Level 8.3 mg/dL (8.5-10.1) L Total Bilirubin 0.5 mg/dL (0.2-1.0) Aspartate Amino Transferase (AST) 17 U/L (15-37) Alanine Aminotransferase (ALT) 13 U/L (14-59) L Alkaline Phosphatase 95 U/L (46-116) Total Protein 7.7 g/dL (6.4-8.2) Albumin 2.9 g/dL (3.4-5.0) L Albumin/Globulin Ratio 0.6 (1.0-1.7) L Laboratory Tests 08/17/21 00:04 Laboratory Tests 08/17/21 00:04 Vital Signs: Vital Signs Date Time Temp Pulse Resp B/P (MAP) Pulse Ox O2 Delivery O2 Flow Rate FiO2 08/16/21 23:49 89 18 Room Air EKG: EKG: [] Radiology/Procedures: Radiology/Procedures: CT Head W/O Contrast: History: Reason: fall on coumadin, pt in c collar / Spl. Instructions: [id number] / History: Comparison: none Axial images were obtained without contrast. The sarah and white matter appears normal and symmetrical for the patients age. There is no mass effect, extraaxial fluid collections or hydrocephalus. There is no gross bleed. There is no focal loss of sarah-white matter distinction to suggest acute ischemia, i.e. stroke. Impression: No acute findings. End of impression CT C-Spine without contrast: Clinical History: Reason: fall on coumadin, pt in c collar / Spl. Instructions: [id number] / History: Technique: Axial helical images of the cervical spine were obtained without contrast, axial coronal and sagittal reconstruction was performed. Findings: The head is tilted to the right and turned to the left. There is moderate levoconvex scoliosis of the cervical spine. In the sagittal plane there is grade 1 anterolisthesis of C3 on C4. There is no loss of vertebral body stature. There is no prevertebral soft tissue swelling. The C1-C2 relationship is normal. The visualized osseous structures appear normal. Evaluation of the central canal is limited without contrast. There is multiple posterior disc bulges resulting in flattening of the thecal sac. There does not appear to be gross flattening of the cervical cord. There is moderate narrowing of multiple neuroforamen. Impression: 1. Levoconvex scoliosis. 2. The head is tilted to the right and turned to the left. Clinical correlation is suggested. 3. No evidence of fracture. PQRS Compliance Statement: One or more of the following individualized dose reduction techniques were utilized for this examination: 1. Automated exposure control 2. Adjustment of the mA and/or kV according to patient size 3. Use of iterative reconstruction technique One view pelvis: History: Pain AP view the pelvis was obtained. There is minimal ascites for axis. Inferior pubic rami on the right. There is obscuration of the bony detail of the sacrum due to overlying bowel gas. Impression: Acute fractures of the superior and inferior pubic rami on the right. Electronically signed by: Reji Mera III, MD (08/17/2021 1:58 AM) [facility] Electronically signed by: Reji Mera III, MD (08/17/2021 1:42 AM) [facility] Two-view right humerus 3 view right elbow and two-view right forearm HISTORY: Pain status post fall 2 view right forearm: AP lateral views. The visualized osseous structures appear normal. 3 view right elbow: AP lateral oblique views. The visualized osseous structures appear normal. 2 view right humerus: AP lateral views. Visualized osseous structures appear normal. IMPRESSION: No acute findings. Electronically signed by: Reji Mera III, MD (08/17/2021 12:33 AM) [facility] Impression: Right superior rami fracture Right inferior rami fracture Mechanical fall Course & Med Decision Making: Course & Med Decision Making Patient presented as a trauma activation. A full primary and secondary survey was performed with above-noted injuries. Plain films of the pelvis reveal right superior and inferior rami fractures. CT scan of the head and C-spine negative for any acute abnormalities. Plain films of the right arm negative for any fracture or dislocation. Patient's was discussed with the trauma service and will be admitted to the hospitalist service for further evaluation and management. The trauma surgery service and orthopedics will be consulted. Seth Disclaimer: Seth Disclaimer: This electronic medical record was generated, in whole or in part, using a voice recognition dictation system. Departure Departure Impression: Primary Impression: Fracture of right inferior pubic ramus Additional Impressions: GEORGI (acute kidney injury) Fracture of right superior pubic ramus Disposition: HOME / SELF CARE / HOMELESS Condition: IMPROVED YARITZA CORONEL MD August 17, 2021 04:54
[2021-08-17] MEDS ORDERED: DIVA-53 PO (05:21)
[2021-08-17] MEDS ORDERED: ZOLP10TA PO (05:21)
[2021-08-17] MEDS ORDERED: ATEN25TA PO (05:21)
[2021-08-17] MEDS ORDERED: GABA-689 PO (05:21)
[2021-08-17] MEDS ORDERED: AMIN30LI PO (05:21)
[2021-08-17] MEDS ORDERED: LEVO125C3 PO (05:21)
[2021-08-17] MEDS ORDERED: DIGO125T3 PO (05:21)
[2021-08-17] MEDS ORDERED: FERR325T14 PO (05:21)
[2021-08-17] MEDS ORDERED: ARIP30TA21 PO (05:21)
[2021-08-17] MEDS ORDERED: RIVA20TA2 PO (05:21)
[2021-08-17] MEDS ORDERED: ASCO500C9 PO (05:21)
[2021-08-17] MEDS ORDERED: KETO120S4 TP (05:21)
[2021-08-17 07:00] VITALS: BP 143/75
[2021-08-17] MEDS ORDERED: DOCUSATE SODIUM 100 MG CAPSULE. PO PRN (08:30)
[2021-08-17] MEDS ORDERED: MORPHINE SULFATE 2 MG/ML INJ. IV PRN (08:30)
[2021-08-17] MEDS ORDERED: ACETAMINOPHEN 325 MG TABLET. PO PRN (08:30)
[2021-08-17] MEDS ORDERED: LORazepam 0.5 MG TABLET PO PRN (08:30)
[2021-08-17] MEDS ORDERED: SENNOSIDES 8.6 MG TABLET PO PRN (08:30)
[2021-08-17] MEDS ORDERED: ONDANSETRON PF 4 MG/2 ML VIAL. IVP PRN (08:30)
[2021-08-17] MEDS ORDERED: diphenhydrAMINE HCL 25 MG CAPSULE PO PRN ×2 (08:30)
[2021-08-17] MEDS ORDERED: DEXTROSE 50% 25 GM / 50ML DISP.SYRIN. IV PRN (08:30)
[2021-08-17] MEDS ORDERED: MORPHINE SULFATE 2 MG/ML INJ. IVP PRN (08:30)
[2021-08-17] MEDS ORDERED: diphenhydrAMINE 50 MG/ML VIAL IVP PRN (08:30)
[2021-08-17] MEDS ORDERED: ZOLPIDEM 5 MG TABLET. PO PRN (08:30)
[2021-08-17] MEDS ORDERED: PROCHLORPERAZINE 10 MG/2 ML VIAL. IV PRN (08:30)
--- NOTE | 2021-08-17 08:32 | PDOC1 ---
History and Physical Date of Service: DOS: DATE: 08/17/21 TIME: 08:14 Chief Complaint: Chief Complain: Fall History of Present Illness: HPI: 66 year old female who presents as a trauma activation after suffering a ground-level fall. Patient apparently fell 24 hours ago. She had plain films done at her nursing facility today which revealed right sided superior and inferior pubic rami fractures. She was subsequently transferred here for further evaluation. Patient states that she did hit her head but denies loss conscious. She does take Coumadin. She also has a contusion to her right elbow. She denies any other pain or injury at this time. Past Medical/Surgical History: PMH/PSH: Past Medical History: Rheumatoid arthritis, A-Fib, Depression, Diabetes-Type II, Schizophrenia, lymphedema. Past Surgical History: Cholecystectomy, pyloric stenosis as infant. Allergies: Allergies: Coded Allergies: Penicillins (Verified Allergy, Intermediate, Rash, 12/08/14) I S O L A T I O N *CONTACT* (Verified Allergy, Unknown, 12/08/14) mrsa + Family History: Family History: Reviewed with no relative findings in the chart Social History: Social History: Smoking Status: Never Smoker Alcohol Use: None Drug Use: None Current Medications: Current Medications Current Medications Sodium Chloride 1,000 ml @ 30 mls/hr Q24H IV Last administered on 08/17/21at 01:38; Start 08/17/21 at 00:00; Stop 08/18/21 at 09:19 Fentanyl Citrate (Fentanyl 2ml Vial) 50 mcg 1X ONCE IVP ; Start 08/17/21 at 00:00; Stop 08/17/21 at 00:10; Status DC Active Scripts Active Reported Pro-Stat Liquid (Amino Acids/Protein Hydrolys) 30 Ml Liquid 30 Ml PO BID Xarelto (Rivaroxaban) 20 Mg Tablet 1 Tab PO DAILY 30 Days with food Ketoconazole 120 Ml Shampoo 1 Cornelia TP TWICE WEEKLY 30 Days with at least 3 days between each shampooing Ferrous Sulfate 325 Mg Tablet 325 Mg PO BID Divalproex Sodium 500 Mg Tablet.dr 500 Mg PO BID Ambien (Zolpidem Tartrate) 10 Mg Tablet 10 Mg PO HS Vitamin C (Ascorbic Acid) 500 Mg Capsule 500 Mg PO BID Digoxin 125 Mcg Tablet 125 Mcg PO DAILY Atenolol 25 Mg Tablet 25 Mg PO BID Levothyroxine (Levothyroxine Sodium) 125 Mcg Capsule 2 Tab PO DAILY Gabapentin (Gabapentin) 400 Mg Capsule 400 Mg PO TID Aripiprazole 30 Mg Tablet 30 Mg PO HS Acetylcysteine 10% Eye Drops (Acetylcysteine in Water/Pf) 10 Ml Drops 10 Ml OU QID Furosemide 40 Mg Tablet 1 Tab PO DAILY Multivitamins (Multivitamin) 1 Each Tablet 1 Tab PO DAILY Tylenol (Acetaminophen) 325 Mg Tablet 2 Tab PO PRN Q4HRS Milk Of Magnesia (Magnesium Hydroxide) 400 Mg/5 Ml Oral.susp 30 Ml PO PRN Q4HRS PRN Voltaren (Diclofenac Sodium) 100 Gm Gel..gram. 1 Gm TP QID Fish Oil ([place]-3 Fatty Acids) 500 Mg Capsule 500 Mg PO DAILY Metformin Hcl 500 Mg Tablet 1 Tab PO DAILY Sertraline Hcl 100 Mg Tablet 150 Mg PO DAILY Tramadol Hcl 50 Mg Tablet 1 Tab PO TID ROS: Review of Systems Review of System REVIEW OF SYSTEMS: GENERAL: Denies weakness SKIN: No bruising, hair changes or rashes. EYES: No blurred, double or loss of vision. NOSE AND THROAT: No history of nosebleeds, hoarseness or sore throat. HEART: No history of palpitations, chest pain or shortness of breath on exertion. LUNGS: Denies cough, hemoptysis, wheezing or shortness of breath. GASTROINTESTINAL: Denies changes in appetite, nausea, vomiting, diarrhea or constipation. GENITOURINARY: No history of frequency, urgency, hesitancy or nocturia. NEUROLOGIC: Denies history of numbness, tingling, or tremor. PSYCHIATRIC: No history of panic, anxiety or depression. ENDOCRINE: No history of heat or cold intolerance, polyuria or polydipsia. EXTREMITIES: Positive for hip pain Physical Exam: Vital Signs: Vital Signs Date Time Temp Pulse Resp B/P (MAP) Pulse Ox O2 Delivery O2 Flow Rate FiO2 08/17/21 04:00 Room Air 08/17/21 03:50 97.7 84 20 133/73 (93) 95 97.7 Physcial Exam: General: Well developed, well nourished, no acute distress, well appearing HEENT: Pupils equally round and reactive to light, EOMI, no discharge, normal conjunctiva Neck: Supple, no nuchal rigidity, no JVD, trachea midline, no tenderness Cardiac: RRR, no murmurs, no gallops, no rubs Chest/Lungs: CTAB, no wheeze, no rhonchi, no crackles Abdomen: soft, non-distended, no guarding, no peritoneal signs, non-tender. Pelvis is stable to compression Back: No tenderness Extremities: no edema, pulses intact, non-tender,capillary refill <3 sec bilateral upper and lower extremities. Contusion to the right elbow Neuro: Alert and oriented x 4, no focal deficits, normal speech Labs: Labs: Laboratory Tests Test 08/17/21 00:04 White Blood Count 7.3 x10^3/uL (4.0-11.0) Red Blood Count 4.10 x10^6/uL (3.50-5.40) Hemoglobin 11.1 g/dL (12.0-15.5) Hematocrit 33.6 % (36.0-47.0) Mean Corpuscular Volume 82 fL (79-100) Mean Corpuscular Hemoglobin 27 pg (25-35) Mean Corpuscular Hemoglobin Concent 33 g/dL (31-37) Red Cell Distribution Width 16.5 % (11.5-14.5) Platelet Count 129 x10^3/uL (140-400) Neutrophils (%) (Auto) 68 % (31-73) Lymphocytes (%) (Auto) 17 % (24-48) Monocytes (%) (Auto) 11 % (0-9) Eosinophils (%) (Auto) 3 % (0-3) Basophils (%) (Auto) 0 % (0-3) Neutrophils # (Auto) 5.0 x10^3/uL (1.8-7.7) Lymphocytes # (Auto) 1.3 x10^3/uL (1.0-4.8) Monocytes # (Auto) 0.8 x10^3/uL (0.0-1.1) Eosinophils # (Auto) 0.2 x10^3/uL (0.0-0.7) Basophils # (Auto) 0.0 x10^3/uL (0.0-0.2) Prothrombin Time 16.7 SEC (11.7-14.0) Prothromb Time International Ratio 1.4 (0.8-1.1) Activated Partial Thromboplast Time 50 SEC (24-38) Sodium Level 140 mmol/L (136-145) Potassium Level 4.2 mmol/L (3.5-5.1) Chloride Level 103 mmol/L (98-107) Carbon Dioxide Level 31 mmol/L (21-32) Anion Gap 6 (6-14) Blood Urea Nitrogen 30 mg/dL (7-20) Creatinine 1.0 mg/dL (0.6-1.0) Estimated GFR (Cockcroft-Gault) 55.1 BUN/Creatinine Ratio 30 (6-20) Glucose Level 122 mg/dL (70-99) Calcium Level 8.3 mg/dL (8.5-10.1) Total Bilirubin 0.5 mg/dL (0.2-1.0) Aspartate Amino Transf (AST/SGOT) 17 U/L (15-37) Alanine Aminotransferase (ALT/SGPT) 13 U/L (14-59) Alkaline Phosphatase 95 U/L (46-116) Total Protein 7.7 g/dL (6.4-8.2) Albumin 2.9 g/dL (3.4-5.0) Albumin/Globulin Ratio 0.6 (1.0-1.7) Laboratory Tests Test 08/17/21 00:04 White Blood Count 7.3 x10^3/uL (4.0-11.0) Red Blood Count 4.10 x10^6/uL (3.50-5.40) Hemoglobin 11.1 g/dL (12.0-15.5) Hematocrit 33.6 % (36.0-47.0) Mean Corpuscular Volume 82 fL (79-100) Mean Corpuscular Hemoglobin 27 pg (25-35) Mean Corpuscular Hemoglobin Concent 33 g/dL (31-37) Red Cell Distribution Width 16.5 % (11.5-14.5) Platelet Count 129 x10^3/uL (140-400) Neutrophils (%) (Auto) 68 % (31-73) Lymphocytes (%) (Auto) 17 % (24-48) Monocytes (%) (Auto) 11 % (0-9) Eosinophils (%) (Auto) 3 % (0-3) Basophils (%) (Auto) 0 % (0-3) Neutrophils # (Auto) 5.0 x10^3/uL (1.8-7.7) Lymphocytes # (Auto) 1.3 x10^3/uL (1.0-4.8) Monocytes # (Auto) 0.8 x10^3/uL (0.0-1.1) Eosinophils # (Auto) 0.2 x10^3/uL (0.0-0.7) Basophils # (Auto) 0.0 x10^3/uL (0.0-0.2) Prothrombin Time 16.7 SEC (11.7-14.0) Prothromb Time International Ratio 1.4 (0.8-1.1) Activated Partial Thromboplast Time 50 SEC (24-38) Sodium Level 140 mmol/L (136-145) Potassium Level 4.2 mmol/L (3.5-5.1) Chloride Level 103 mmol/L (98-107) Carbon Dioxide Level 31 mmol/L (21-32) Anion Gap 6 (6-14) Blood Urea Nitrogen 30 mg/dL (7-20) Creatinine 1.0 mg/dL (0.6-1.0) Estimated GFR (Cockcroft-Gault) 55.1 BUN/Creatinine Ratio 30 (6-20) Glucose Level 122 mg/dL (70-99) Calcium Level 8.3 mg/dL (8.5-10.1) Total Bilirubin 0.5 mg/dL (0.2-1.0) Aspartate Amino Transf (AST/SGOT) 17 U/L (15-37) Alanine Aminotransferase (ALT/SGPT) 13 U/L (14-59) Alkaline Phosphatase 95 U/L (46-116) Total Protein 7.7 g/dL (6.4-8.2) Albumin 2.9 g/dL (3.4-5.0) Albumin/Globulin Ratio 0.6 (1.0-1.7) Images: Images PROCEDURE: CT HEAD AND CERVICAL SPINE WO CT Head W/O Contrast: History: Reason: fall on coumadin, pt in c collar / Spl. Instructions: / History: Comparison: none Axial images were obtained without contrast. The sarah and white matter appears normal and symmetrical for the patients age. There is no mass effect, extraaxial fluid collections or hydrocephalus. There is no gross bleed. There is no focal loss of sarah-white matter distinction to suggest acute ischemia, i.e. stroke. Impression: No acute findings. End of impression CT C-Spine without contrast: Clinical History: Reason: fall on coumadin, pt in c collar / Spl. Instructions: [id number] / History: Technique: Axial helical images of the cervical spine were obtained without contrast, axial coronal and sagittal reconstruction was performed. Findings: The head is tilted to the right and turned to the left. There is moderate levoconvex scoliosis of the cervical spine. In the sagittal plane there is grade 1 anterolisthesis of C3 on C4. There is no loss of vertebral body stature. There is no prevertebral soft tissue swelling. The C1-C2 relationship is normal. The visualized osseous structures appear normal. Evaluation of the central canal is limited without contrast. There is multiple posterior disc bulges resulting in flattening of the thecal sac. There does not appear to be gross flattening of the cervical cord. There is moderate narrowing of multiple neuroforamen. Impression: 1. Levoconvex scoliosis. 2. The head is tilted to the right and turned to the left. Clinical correlation is suggested. 3. No evidence of fracture. PROCEDURE: PELVIS One view pelvis: History: Pain AP view the pelvis was obtained. There is minimal ascites for axis. Inferior pubic rami on the right. There is obscuration of the bony detail of the sacrum due to overlying bowel gas. Impression: Acute fractures of the superior and inferior pubic rami on the right. Assessment/Plan Assessment/Plan Fall from standing height Acute pubic rami fracture Normocytic anemia Thrombocytopenia History of rheumatoid arthritis History of atrial fibrillation on Xarelto Admit to hospitalist service for further management Ortho consult for evaluation of fracture and weightbearing status General surgery consult for trauma PT OT evaluation Fall precautions SCD only for DVT prophylaxis Cardiac diet CODE STATUS full Discussed with RN and SW Disposition inpatient management as above DPOA: Justifications for Admission Other Justification MAKEDA YANCEY MD August 17, 2021 08:32
--- NOTE | 2021-08-17 10:27 | PDOC2 ---
CONSULT Date of Consult Date of Consult DATE: 08/17/21 TIME: 10:21 Reason for Consult Reason for Consult: pelvis fracture Identification/Chief Complaint Chief Complaint right hip pain Problems: (1) Fracture of right inferior pubic ramus History of Present Illness Reason for Visit: This is a 66 year old female who lives at an [facility] living [facility] who was ambulating with a walker, sustained a fall and had immediate pain to the right hip and groin. she was unable to ambulate. she was brought to ED and diagnosed with right superior and inferior pubic rami fractures. Her pain is controlled currently. she denies previous injuries or surgeries to this hip or her pelvis. Past Medical History Cardiovascular: Hyperlipidemia Family History Family History: High Cholestrol, Hypertension Social History Social History: Parent ALCOHOL: none Drugs: None Current Medications Current Medications Current Medications Sodium Chloride 1,000 ml @ 30 mls/hr Q24H IV Last administered on 08/17/21at 01:38; Start 08/17/21 at 00:00; Stop 08/18/21 at 09:19 Fentanyl Citrate (Fentanyl 2ml Vial) 50 mcg 1X ONCE IVP ; Start 08/17/21 at 00:00; Stop 08/17/21 at 00:10; Status DC Sennosides (Senna) 17.2 mg PRN BID PRN PO CONSTIPATION; Start 08/17/21 at 08:30 Docusate Sodium (Colace) 100 mg PRN DAILY PRN PO HARD STOOLS; Start 08/17/21 at 08:30 Ondansetron HCl (Zofran) 4 mg PRN Q6HRS PRN IVP NAUSEA/VOMITING, 1st CHOICE; Start 08/17/21 at 08:30 Dextrose (Dextrose 50%-Water Syringe) 12.5 gm PRN Q15MIN PRN IV SEE COMMENTS; Start 08/17/21 at 08:30 Sodium Chloride 1,000 ml @ 100 mls/hr Q10H IV ; Start 08/17/21 at 09:00 Acetaminophen (Tylenol) 650 mg PRN Q4HRS PRN PO TEMP OVER 100.4F OR MILD PAIN; Start 08/17/21 at 08:30 Lorazepam (Ativan) 0.5 mg PRN Q6HRS PRN PO ANXIETY / AGITATION; Start 08/17/21 at 08:30 Lorazepam (Ativan Inj) 0.25 mg PRN Q4HRS PRN IV ANXIETY / AGITATION; Start 08/17/21 at 08:30 Acetaminophen/ Hydrocodone Bitart (Lortab 5/325) 1 tab PRN Q4HRS PRN PO MILD PAIN 1-3; Start 08/17/21 at 08:30 Morphine Sulfate (Morphine Sulfate) 1 mg PRN Q1HR PRN IV PAIN; Start 08/17/21 at 08:30 Morphine Sulfate (Morphine Sulfate) 2 mg PRN Q2HR PRN IVP SEVERE PAIN 7-10; Start 08/17/21 at 08:30; Stop 08/18/21 at 08:29 Prochlorperazine Edisylate (Compazine) 10 mg PRN Q6HRS PRN IV NAUSEA/VOMITING, 2nd CHOICE; Start 08/17/21 at 08:30 Diphenhydramine HCl (Benadryl) 25 mg PRN Q6HRS PRN IVP ITCHING; Start 08/17/21 at 08:30 Diphenhydramine HCl (Benadryl) 25 mg PRN Q6HRS PRN PO ITCHING; Start 08/17/21 at 08:30 Diphenhydramine HCl (Benadryl) 25 mg PRN QHS PRN PO INSOMNIA, 1st CHOICE; Start 08/17/21 at 08:30 Zolpidem Tartrate (Ambien) 2.5 mg PRN QHS PRN PO INSOMNIA, 2nd CHOICE; Start 08/17/21 at 08:30 Active Scripts Active Reported Pro-Stat Liquid (Amino Acids/Protein Hydrolys) 30 Ml Liquid 30 Ml PO BID Xarelto (Rivaroxaban) 20 Mg Tablet 1 Tab PO DAILY 30 Days with food Ketoconazole 120 Ml Shampoo 1 Cornelia TP TWICE WEEKLY 30 Days with at least 3 days between each shampooing Ferrous Sulfate 325 Mg Tablet 325 Mg PO BID Divalproex Sodium 500 Mg Tablet.dr 500 Mg PO BID Ambien (Zolpidem Tartrate) 10 Mg Tablet 10 Mg PO HS Vitamin C (Ascorbic Acid) 500 Mg Capsule 500 Mg PO BID Digoxin 125 Mcg Tablet 125 Mcg PO DAILY Atenolol 25 Mg Tablet 25 Mg PO BID Levothyroxine (Levothyroxine Sodium) 125 Mcg Capsule 2 Tab PO DAILY Gabapentin (Gabapentin) 400 Mg Capsule 400 Mg PO TID Aripiprazole 30 Mg Tablet 30 Mg PO HS Acetylcysteine 10% Eye Drops (Acetylcysteine in Water/Pf) 10 Ml Drops 10 Ml OU QID Furosemide 40 Mg Tablet 1 Tab PO DAILY Multivitamins (Multivitamin) 1 Each Tablet 1 Tab PO DAILY Tylenol (Acetaminophen) 325 Mg Tablet 2 Tab PO PRN Q4HRS Milk Of Magnesia (Magnesium Hydroxide) 400 Mg/5 Ml Oral.susp 30 Ml PO PRN Q4HRS PRN Voltaren (Diclofenac Sodium) 100 Gm Gel..gram. 1 Gm TP QID Fish Oil ([place]-3 Fatty Acids) 500 Mg Capsule 500 Mg PO DAILY Metformin Hcl 500 Mg Tablet 1 Tab PO DAILY Sertraline Hcl 100 Mg Tablet 150 Mg PO DAILY Tramadol Hcl 50 Mg Tablet 1 Tab PO TID Allergies Allergies: Coded Allergies: Penicillins (Verified Allergy, Intermediate, Rash, 12/08/14) I S O L A T I O N *CONTACT* (Verified Allergy, Unknown, 12/08/14) mrsa + ROS Review of System 14 point ROS was performed and negative other than complaint above Physical Exam General: No acute distress Lungs: Normal air movement Extremities: No edema Skin: No rashes Psych/Mental Status: Mental status NL MUSCULOSKELETAL: Abnormal exam of right (hip reveals pain to groin with range of motion. postive log roll. ) Vitals VITALS Vital Signs Date Time Temp Pulse Resp B/P (MAP) Pulse Ox O2 Delivery O2 Flow Rate FiO2 08/17/21 07:00 97.6 69 20 143/75 (97) 93 Room Air 97.6 Labs Labs Laboratory Tests Test 08/17/21 00:04 08/17/21 07:26 White Blood Count 7.3 x10^3/uL (4.0-11.0) Red Blood Count 4.10 x10^6/uL (3.50-5.40) Hemoglobin 11.1 g/dL (12.0-15.5) Hematocrit 33.6 % (36.0-47.0) Mean Corpuscular Volume 82 fL (79-100) Mean Corpuscular Hemoglobin 27 pg (25-35) Mean Corpuscular Hemoglobin Concent 33 g/dL (31-37) Red Cell Distribution Width 16.5 % (11.5-14.5) Platelet Count 129 x10^3/uL (140-400) Neutrophils (%) (Auto) 68 % (31-73) Lymphocytes (%) (Auto) 17 % (24-48) Monocytes (%) (Auto) 11 % (0-9) Eosinophils (%) (Auto) 3 % (0-3) Basophils (%) (Auto) 0 % (0-3) Neutrophils # (Auto) 5.0 x10^3/uL (1.8-7.7) Lymphocytes # (Auto) 1.3 x10^3/uL (1.0-4.8) Monocytes # (Auto) 0.8 x10^3/uL (0.0-1.1) Eosinophils # (Auto) 0.2 x10^3/uL (0.0-0.7) Basophils # (Auto) 0.0 x10^3/uL (0.0-0.2) Prothrombin Time 16.7 SEC (11.7-14.0) Prothromb Time International Ratio 1.4 (0.8-1.1) Activated Partial Thromboplast Time 50 SEC (24-38) Sodium Level 140 mmol/L (136-145) Potassium Level 4.2 mmol/L (3.5-5.1) Chloride Level 103 mmol/L (98-107) Carbon Dioxide Level 31 mmol/L (21-32) Anion Gap 6 (6-14) Blood Urea Nitrogen 30 mg/dL (7-20) Creatinine 1.0 mg/dL (0.6-1.0) Estimated GFR (Cockcroft-Gault) 55.1 BUN/Creatinine Ratio 30 (6-20) Glucose Level 122 mg/dL (70-99) Calcium Level 8.3 mg/dL (8.5-10.1) Total Bilirubin 0.5 mg/dL (0.2-1.0) Aspartate Amino Transf (AST/SGOT) 17 U/L (15-37) Alanine Aminotransferase (ALT/SGPT) 13 U/L (14-59) Alkaline Phosphatase 95 U/L (46-116) Total Protein 7.7 g/dL (6.4-8.2) Albumin 2.9 g/dL (3.4-5.0) Albumin/Globulin Ratio 0.6 (1.0-1.7) Glucose (Fingerstick) 72 mg/dL (70-99) Laboratory Tests Test 08/17/21 00:04 08/17/21 07:26 White Blood Count 7.3 x10^3/uL (4.0-11.0) Red Blood Count 4.10 x10^6/uL (3.50-5.40) Hemoglobin 11.1 g/dL (12.0-15.5) Hematocrit 33.6 % (36.0-47.0) Mean Corpuscular Volume 82 fL (79-100) Mean Corpuscular Hemoglobin 27 pg (25-35) Mean Corpuscular Hemoglobin Concent 33 g/dL (31-37) Red Cell Distribution Width 16.5 % (11.5-14.5) Platelet Count 129 x10^3/uL (140-400) Neutrophils (%) (Auto) 68 % (31-73) Lymphocytes (%) (Auto) 17 % (24-48) Monocytes (%) (Auto) 11 % (0-9) Eosinophils (%) (Auto) 3 % (0-3) Basophils (%) (Auto) 0 % (0-3) Neutrophils # (Auto) 5.0 x10^3/uL (1.8-7.7) Lymphocytes # (Auto) 1.3 x10^3/uL (1.0-4.8) Monocytes # (Auto) 0.8 x10^3/uL (0.0-1.1) Eosinophils # (Auto) 0.2 x10^3/uL (0.0-0.7) Basophils # (Auto) 0.0 x10^3/uL (0.0-0.2) Prothrombin Time 16.7 SEC (11.7-14.0) Prothromb Time International Ratio 1.4 (0.8-1.1) Activated Partial Thromboplast Time 50 SEC (24-38) Sodium Level 140 mmol/L (136-145) Potassium Level 4.2 mmol/L (3.5-5.1) Chloride Level 103 mmol/L (98-107) Carbon Dioxide Level 31 mmol/L (21-32) Anion Gap 6 (6-14) Blood Urea Nitrogen 30 mg/dL (7-20) Creatinine 1.0 mg/dL (0.6-1.0) Estimated GFR (Cockcroft-Gault) 55.1 BUN/Creatinine Ratio 30 (6-20) Glucose Level 122 mg/dL (70-99) Calcium Level 8.3 mg/dL (8.5-10.1) Total Bilirubin 0.5 mg/dL (0.2-1.0) Aspartate Amino Transf (AST/SGOT) 17 U/L (15-37) Alanine Aminotransferase (ALT/SGPT) 13 U/L (14-59) Alkaline Phosphatase 95 U/L (46-116) Total Protein 7.7 g/dL (6.4-8.2) Albumin 2.9 g/dL (3.4-5.0) Albumin/Globulin Ratio 0.6 (1.0-1.7) Glucose (Fingerstick) 72 mg/dL (70-99) Images Images ap pelvis reveals minimally displaced right sup/inf pubic rami fractures. no other acute abnormalities Assessment/Plan Assessment/Plan assesment: right super and inferior pubic rami fracture. plan: the patient will be weight bearing as tolerated. PT/OT to be consulted. case management for discharge planning. No surgical indication at this time. Patient may follow-up with us on an outpatient basis in approximately 2 weeks for evaluation and x-ray review. Our office number is [phone] DANN LANDAVERDE DO August 17, 2021 10:27
[2021-08-17 11:00] VITALS: BP 150/62
--- NOTE | 2021-08-17 11:15 | PDOC2 ---
CONSULT Date of Consult Date of Consult DATE: 08/17/21 TIME: 11:09 History of Present Illness Reason for Visit: The patient is a 66 year old female who resides in a nursing facility. She was walking toward her bathroom when she reportedly felt "sleepy". She fell from standing on to her right side. She denies loss of consciousness. After the fall she noticed pain localized to the right side of her pelvis. She denies headache, nausea, abdominal or chest pain, SOB. Her ER evaluation confirmed a R superior/inferior pubic ramus fx. Past Medical History Cardiovascular: Hyperlipidemia Past Surgical History Past Surgical History lap olga, pyloromyotomy Family History Family History: High Cholestrol, Hypertension Social History Social History: Parent ALCOHOL: none Drugs: None Current Medications Current Medications Current Medications Sodium Chloride 1,000 ml @ 30 mls/hr Q24H IV Last administered on 08/17/21at 01:38; Start 08/17/21 at 00:00; Stop 08/18/21 at 09:19 Fentanyl Citrate (Fentanyl 2ml Vial) 50 mcg 1X ONCE IVP ; Start 08/17/21 at 00:00; Stop 08/17/21 at 00:10; Status DC Sennosides (Senna) 17.2 mg PRN BID PRN PO CONSTIPATION; Start 08/17/21 at 08:30 Docusate Sodium (Colace) 100 mg PRN DAILY PRN PO HARD STOOLS; Start 08/17/21 at 08:30 Ondansetron HCl (Zofran) 4 mg PRN Q6HRS PRN IVP NAUSEA/VOMITING, 1st CHOICE; Start 08/17/21 at 08:30 Dextrose (Dextrose 50%-Water Syringe) 12.5 gm PRN Q15MIN PRN IV SEE COMMENTS; Start 08/17/21 at 08:30 Sodium Chloride 1,000 ml @ 100 mls/hr Q10H IV Last administered on 08/17/21at 09:00; Start 08/17/21 at 09:00 Acetaminophen (Tylenol) 650 mg PRN Q4HRS PRN PO TEMP OVER 100.4F OR MILD PAIN; Start 08/17/21 at 08:30 Lorazepam (Ativan) 0.5 mg PRN Q6HRS PRN PO ANXIETY / AGITATION; Start 08/17/21 at 08:30 Lorazepam (Ativan Inj) 0.25 mg PRN Q4HRS PRN IV ANXIETY / AGITATION; Start 08/17/21 at 08:30 Acetaminophen/ Hydrocodone Bitart (Lortab 5/325) 1 tab PRN Q4HRS PRN PO MILD PAIN 1-3; Start 08/17/21 at 08:30 Morphine Sulfate (Morphine Sulfate) 1 mg PRN Q1HR PRN IV PAIN; Start 08/17/21 at 08:30 Morphine Sulfate (Morphine Sulfate) 2 mg PRN Q2HR PRN IVP SEVERE PAIN 7-10; Start 08/17/21 at 08:30; Stop 08/18/21 at 08:29 Prochlorperazine Edisylate (Compazine) 10 mg PRN Q6HRS PRN IV NAUSEA/VOMITING, 2nd CHOICE; Start 08/17/21 at 08:30 Diphenhydramine HCl (Benadryl) 25 mg PRN Q6HRS PRN IVP ITCHING; Start 08/17/21 at 08:30 Diphenhydramine HCl (Benadryl) 25 mg PRN Q6HRS PRN PO ITCHING; Start 08/17/21 at 08:30 Diphenhydramine HCl (Benadryl) 25 mg PRN QHS PRN PO INSOMNIA, 1st CHOICE; Start 08/17/21 at 08:30 Zolpidem Tartrate (Ambien) 2.5 mg PRN QHS PRN PO INSOMNIA, 2nd CHOICE; Start 08/17/21 at 08:30 Active Scripts Active Reported Pro-Stat Liquid (Amino Acids/Protein Hydrolys) 30 Ml Liquid 30 Ml PO BID Xarelto (Rivaroxaban) 20 Mg Tablet 1 Tab PO DAILY 30 Days with food Ketoconazole 120 Ml Shampoo 1 Cornelia TP TWICE WEEKLY 30 Days with at least 3 days between each shampooing Ferrous Sulfate 325 Mg Tablet 325 Mg PO BID Divalproex Sodium 500 Mg Tablet.dr 500 Mg PO BID Ambien (Zolpidem Tartrate) 10 Mg Tablet 10 Mg PO HS Vitamin C (Ascorbic Acid) 500 Mg Capsule 500 Mg PO BID Digoxin 125 Mcg Tablet 125 Mcg PO DAILY Atenolol 25 Mg Tablet 25 Mg PO BID Levothyroxine (Levothyroxine Sodium) 125 Mcg Capsule 2 Tab PO DAILY Gabapentin (Gabapentin) 400 Mg Capsule 400 Mg PO TID Aripiprazole 30 Mg Tablet 30 Mg PO HS Acetylcysteine 10% Eye Drops (Acetylcysteine in Water/Pf) 10 Ml Drops 10 Ml OU QID Furosemide 40 Mg Tablet 1 Tab PO DAILY Multivitamins (Multivitamin) 1 Each Tablet 1 Tab PO DAILY Tylenol (Acetaminophen) 325 Mg Tablet 2 Tab PO PRN Q4HRS Milk Of Magnesia (Magnesium Hydroxide) 400 Mg/5 Ml Oral.susp 30 Ml PO PRN Q4HRS PRN Voltaren (Diclofenac Sodium) 100 Gm Gel..gram. 1 Gm TP QID Fish Oil ([place]-3 Fatty Acids) 500 Mg Capsule 500 Mg PO DAILY Metformin Hcl 500 Mg Tablet 1 Tab PO DAILY Sertraline Hcl 100 Mg Tablet 150 Mg PO DAILY Tramadol Hcl 50 Mg Tablet 1 Tab PO TID Allergies Allergies: Coded Allergies: Penicillins (Verified Allergy, Intermediate, Rash, 12/08/14) I S O L A T I O N *CONTACT* (Verified Allergy, Unknown, 12/08/14) mrsa + ROS General: No: Chills, Night Sweats, Fatigue, Malaise, Appetite, Other PSYCHOLOGICAL ROS: No: Anxiety, Behavioral Disorder, Concentration difficultie, Decreased libido, Depression, Disorientation, Hallucinations, Hostility, Irritablity, Memory difficulties, Mood Swings, Obsessive thoughts, Physical abuse, Sexual abuse, Sleep disturbances, Suicidal ideation, Other Eyes: No Blurry vision, No Decreased vision, No Double vision, No Dry eyes, No Excessive tearing, No Eye Pain, No Itchy Eyes, No Loss of vision, No Photophobia, No Scotomata, No Uses contacts, No Uses glasses, No Other HEENT: No: Heacaches, Visual Changes, Hearing change, Nasal congestion, Nasal discharge, Oral lesions, Sinus pain, Sore Throat, Epistaxis, Sneezing, Snoring, Tinnitus, Vertigo, Vocal changes, Other ALLERGY AND IMMUNOLOGY: No: Hives, Insect Bite Sensitivity, Itchy/Watery Eyes, Nasal Congestion, Post Nasal Drip, Seasonal Allergies, Other ENDOCRINE: No: Breast Changes, Galactorrhea, Hair Pattern Changes, Hot Flashes, Malaise/lethargy, Mood Swings, Palpitations, Polydipsia/polyuria, Skin Changes, Temperature Intolerance, Unexpected Weight Changes, Other Respiratory: No: Cough, Hemoptysis, Orthopnea, Pleuritic Pain, Shortness of breath, SOB with excertion, Sputum Changes, Stridor, Tachypnea, Wheezing, Other Cardiovascular: No Chest Pain, No Palpitations, No Orthopnea, No Paroxysmal Noc. Dyspnea, No Edema, No Lt Headedness, No Other Gastrointestinal: No Nausea, No Vomiting, No Abdominal Pain, No Diarrhea, No Constipation, No Melena, No Hematochezia, No Other Musculoskeletal: No Gait Disturbance, No Joint Pain, No Joint Stiffness, No J oint Swelling, No Muscle Pain, No Muscular Weakness, No Pain In:, No Swelling In:, No Other Neurological: No Behavorial Changes, No Bowel/Bladder ControlChng, No Confusion, No Dizziness, No Gait Disturbance, No Headaches, No Impaired Coord/balance, No Memory Loss, No Numbness/Tingling, No Seizures, No Speech Problems, No Tremors, No Visual Changes, No Weakness, No Other Skin: Yes Other (chronic venous stasis ulcer on the right lower leg) Physical Exam General: Alert, Oriented X3, Cooperative HEENT: PERRLA Lungs: Clear to auscultation Heart: Regular rate Abdomen: Soft, No tenderness, No masses Extremities: Other (some peripheral edema noted, bilateral lower extremity venous stasis change, clean superficial venous stasis ulcer right lower extremity) Neuro: Normal speech Psych/Mental Status: Mental status NL Vitals VITALS Vital Signs Date Time Temp Pulse Resp B/P (MAP) Pulse Ox O2 Delivery O2 Flow Rate FiO2 08/17/21 07:00 97.6 69 20 143/75 (97) 93 Room Air 97.6 Labs Labs Laboratory Tests Test 08/17/21 00:04 08/17/21 07:26 White Blood Count 7.3 x10^3/uL (4.0-11.0) Red Blood Count 4.10 x10^6/uL (3.50-5.40) Hemoglobin 11.1 g/dL (12.0-15.5) Hematocrit 33.6 % (36.0-47.0) Mean Corpuscular Volume 82 fL (79-100) Mean Corpuscular Hemoglobin 27 pg (25-35) Mean Corpuscular Hemoglobin Concent 33 g/dL (31-37) Red Cell Distribution Width 16.5 % (11.5-14.5) Platelet Count 129 x10^3/uL (140-400) Neutrophils (%) (Auto) 68 % (31-73) Lymphocytes (%) (Auto) 17 % (24-48) Monocytes (%) (Auto) 11 % (0-9) Eosinophils (%) (Auto) 3 % (0-3) Basophils (%) (Auto) 0 % (0-3) Neutrophils # (Auto) 5.0 x10^3/uL (1.8-7.7) Lymphocytes # (Auto) 1.3 x10^3/uL (1.0-4.8) Monocytes # (Auto) 0.8 x10^3/uL (0.0-1.1) Eosinophils # (Auto) 0.2 x10^3/uL (0.0-0.7) Basophils # (Auto) 0.0 x10^3/uL (0.0-0.2) Prothrombin Time 16.7 SEC (11.7-14.0) Prothromb Time International Ratio 1.4 (0.8-1.1) Activated Partial Thromboplast Time 50 SEC (24-38) Sodium Level 140 mmol/L (136-145) Potassium Level 4.2 mmol/L (3.5-5.1) Chloride Level 103 mmol/L (98-107) Carbon Dioxide Level 31 mmol/L (21-32) Anion Gap 6 (6-14) Blood Urea Nitrogen 30 mg/dL (7-20) Creatinine 1.0 mg/dL (0.6-1.0) Estimated GFR (Cockcroft-Gault) 55.1 BUN/Creatinine Ratio 30 (6-20) Glucose Level 122 mg/dL (70-99) Calcium Level 8.3 mg/dL (8.5-10.1) Total Bilirubin 0.5 mg/dL (0.2-1.0) Aspartate Amino Transf (AST/SGOT) 17 U/L (15-37) Alanine Aminotransferase (ALT/SGPT) 13 U/L (14-59) Alkaline Phosphatase 95 U/L (46-116) Total Protein 7.7 g/dL (6.4-8.2) Albumin 2.9 g/dL (3.4-5.0) Albumin/Globulin Ratio 0.6 (1.0-1.7) Glucose (Fingerstick) 72 mg/dL (70-99) Laboratory Tests Test 08/17/21 00:04 08/17/21 07:26 White Blood Count 7.3 x10^3/uL (4.0-11.0) Red Blood Count 4.10 x10^6/uL (3.50-5.40) Hemoglobin 11.1 g/dL (12.0-15.5) Hematocrit 33.6 % (36.0-47.0) Mean Corpuscular Volume 82 fL (79-100) Mean Corpuscular Hemoglobin 27 pg (25-35) Mean Corpuscular Hemoglobin Concent 33 g/dL (31-37) Red Cell Distribution Width 16.5 % (11.5-14.5) Platelet Count 129 x10^3/uL (140-400) Neutrophils (%) (Auto) 68 % (31-73) Lymphocytes (%) (Auto) 17 % (24-48) Monocytes (%) (Auto) 11 % (0-9) Eosinophils (%) (Auto) 3 % (0-3) Basophils (%) (Auto) 0 % (0-3) Neutrophils # (Auto) 5.0 x10^3/uL (1.8-7.7) Lymphocytes # (Auto) 1.3 x10^3/uL (1.0-4.8) Monocytes # (Auto) 0.8 x10^3/uL (0.0-1.1) Eosinophils # (Auto) 0.2 x10^3/uL (0.0-0.7) Basophils # (Auto) 0.0 x10^3/uL (0.0-0.2) Prothrombin Time 16.7 SEC (11.7-14.0) Prothromb Time International Ratio 1.4 (0.8-1.1) Activated Partial Thromboplast Time 50 SEC (24-38) Sodium Level 140 mmol/L (136-145) Potassium Level 4.2 mmol/L (3.5-5.1) Chloride Level 103 mmol/L (98-107) Carbon Dioxide Level 31 mmol/L (21-32) Anion Gap 6 (6-14) Blood Urea Nitrogen 30 mg/dL (7-20) Creatinine 1.0 mg/dL (0.6-1.0) Estimated GFR (Cockcroft-Gault) 55.1 BUN/Creatinine Ratio 30 (6-20) Glucose Level 122 mg/dL (70-99) Calcium Level 8.3 mg/dL (8.5-10.1) Total Bilirubin 0.5 mg/dL (0.2-1.0) Aspartate Amino Transf (AST/SGOT) 17 U/L (15-37) Alanine Aminotransferase (ALT/SGPT) 13 U/L (14-59) Alkaline Phosphatase 95 U/L (46-116) Total Protein 7.7 g/dL (6.4-8.2) Albumin 2.9 g/dL (3.4-5.0) Albumin/Globulin Ratio 0.6 (1.0-1.7) Glucose (Fingerstick) 72 mg/dL (70-99) Images Images AP view the pelvis was obtained. There is minimal ascites for axis. Inferior pubic rami on the right. There is obscuration of the bony detail of the sacrum due to overlying bowel gas. Impression: Acute fractures of the superior and inferior pubic rami on the right. Assessment/Plan Assessment/Plan A/P) Fall from standing, R pelvic fracture, appears isolated, abdominal exam benign, no apparent chest, head, neck trauma. Ortho consulted, defer to them for management of pelvic fx. No other surgical issues identified. Will be available as needed, thanks for the consult!! ILAN CARRION MD August 17, 2021 11:15
[2021-08-17] MEDS: LEVOTHYROXINE 125 MCG TABLET PO SCH (12:36)
[2021-08-17] MEDS: SERTRALINE 50 MG TABLET. PO SCH (12:36)
[2021-08-17] MEDS: DIVALPROEX DELAYED RELEASE 500 MG TABLET.DR. PO SCH ×2 (12:37→20:53)
[2021-08-17 15:00] VITALS: BP 134/57
[2021-08-17] MEDS: GABAPENTIN 400 MG CAPSULE. PO SCH ×2 (15:57→20:53)
[2021-08-17] MEDS: RIVAROXABAN 10 MG TABLET. PO SCH (15:58)
[2021-08-17] MEDS: HYDROcodone/APAP 5/325MG 1 TAB TABLET PO PRN (16:02)
[2021-08-17 19:00] VITALS: BP 142/71
[2021-08-17] MEDS: ARIPiprazole 5 MG TABLET PO SCH (20:53)
[2021-08-17 23:00] VITALS: BP 124/46
[2021-08-18 03:00] VITALS: BP 138/58
[2021-08-18] MEDS: IV NORMAL SALINE 1000ML BAG 1,000 ML IV SCH ×3 (05:02→15:00)
[2021-08-18] MEDS: LEVOTHYROXINE 125 MCG TABLET PO SCH (05:39)
[2021-08-18 07:00] VITALS: BP 139/50
[2021-08-18 07:48] LABS: BASO % 0 % (0-3); EOS # 0.3 x10^3/uL (0.0-0.7); EOS % 5 % (0-3); HEMATOCRIT 31.4 % (36.0-47.0); HEMOGLOBIN 10.4 g/dL (12.0-15.5); LYMPH # 1.2 x10^3/uL (1.0-4.8); LYMPH % 17 % (24-48); MEAN CORPUSCULAR HEMOGLOBIN 27 pg (25-35); MEAN CORPUSCULAR HGB CONC 33 g/dL (31-37); MEAN CORPUSCULAR VOLUME 82 fL (79-100); MONO # 0.7 x10^3/uL (0.0-1.1); MONO % 10 % (0-9); NEUT # 4.7 x10^3/uL (1.8-7.7); NEUT % 68 % (31-73); PLATELET COUNT 113 x10^3/uL (140-400); RED BLOOD COUNT 3.85 x10^6/uL (3.50-5.40)
[2021-08-18 08:04] LABS: CALCIUM 7.9 mg/dL (8.5-10.1); CREATININE 0.7 mg/dL (0.6-1.0); GFR 83.2; PHOSPHORUS 3.3 mg/dL (2.6-4.7); POTASSIUM 4.3 mmol/L (3.5-5.1)
[2021-08-18] MEDS: GABAPENTIN 400 MG CAPSULE. PO SCH ×3 (08:16→21:22)
[2021-08-18] MEDS: SERTRALINE 50 MG TABLET. PO SCH (08:16)
[2021-08-18] MEDS: DIVALPROEX DELAYED RELEASE 500 MG TABLET.DR. PO SCH ×2 (08:16→21:22)
[2021-08-18] MEDS: HYDROcodone/APAP 5/325MG 1 TAB TABLET PO PRN ×3 (08:16→21:32)
--- NOTE | 2021-08-18 10:44 | PDOC ---
[employer] PROGRESS NOTE Date of Service DOS: DATE: 08/18/21 TIME: 10:42 Chief Complaint Chief Complaint Assessment/Plan Fall from standing height Acute pubic rami fracture Normocytic anemia Thrombocytopenia History of rheumatoid arthritis History of atrial fibrillation on Xarelto Appreciate Ortho recommendationsweightbearing as tolerated and nonoperative management General surgery consult for trauma PT OT evaluation Fall precautions SCD only for DVT prophylaxis Cardiac diet CODE STATUS full Discussed with RN and SW Disposition inpatient management as above DPOA: History of Present Illness History of Present Illness 66 year old female who presents as a trauma activation after suffering a ground-level fall. Patient apparently fell 24 hours ago. She had plain films done at her nursing facility today which revealed right sided superior and inferior pubic rami fractures. She was subsequently transferred here for further evaluation. Patient states that she did hit her head but denies loss conscious. She does take Coumadin. She also has a contusion to her right elbow. She denies any other pain or injury at this time. 08/18/2021 No acute events overnight. Patient seen examined bedside. Pain is well controlled. Resting comfortably. Sugars of 69 today requiring hypoglycemia protocol. Surgery evaluated and signed off. Continued PT OT evaluation. Patient will likely need rehab. Patient's chart, labs, images were reviewed and discussed with RN Vitals/I&O Vitals/I&O: Vital Signs Date Time Temp Pulse Resp B/P (MAP) Pulse Ox O2 Delivery O2 Flow Rate FiO2 08/18/21 09:30 Room Air 08/18/21 07:00 97.6 65 16 139/50 (79) 97 97.6 I & O 08/17/21 08/17/21 08/18/21 15:00 23:00 07:00 Output Total 300 ml Balance -300 ml Physical Exam General: Alert, Oriented X3, Cooperative Heart: Regular rate Lungs: Clear Abdomen: Soft, No tenderness, No masses Extremities: Other (some peripheral edema noted, bilateral lower extremity venous stasis change, clean superficial venous stasis ulcer right lower extremity) Skin: No rashes Labs Labs: Laboratory Tests Test 08/17/21 11:51 08/17/21 16:45 08/17/21 20:19 08/18/21 06:10 Glucose (Fingerstick) 116 mg/dL (70-99) 148 mg/dL (70-99) 134 mg/dL (70-99) White Blood Count 7.0 x10^3/uL (4.0-11.0) Red Blood Count 3.85 x10^6/uL (3.50-5.40) Hemoglobin 10.4 g/dL (12.0-15.5) Hematocrit 31.4 % (36.0-47.0) Mean Corpuscular Volume 82 fL (79-100) Mean Corpuscular Hemoglobin 27 pg (25-35) Mean Corpuscular Hemoglobin Concent 33 g/dL (31-37) Red Cell Distribution Width 16.0 % (11.5-14.5) Platelet Count 113 x10^3/uL (140-400) Neutrophils (%) (Auto) 68 % (31-73) Lymphocytes (%) (Auto) 17 % (24-48) Monocytes (%) (Auto) 10 % (0-9) Eosinophils (%) (Auto) 5 % (0-3) Basophils (%) (Auto) 0 % (0-3) Neutrophils # (Auto) 4.7 x10^3/uL (1.8-7.7) Lymphocytes # (Auto) 1.2 x10^3/uL (1.0-4.8) Monocytes # (Auto) 0.7 x10^3/uL (0.0-1.1) Eosinophils # (Auto) 0.3 x10^3/uL (0.0-0.7) Basophils # (Auto) 0.0 x10^3/uL (0.0-0.2) Sodium Level 142 mmol/L (136-145) Potassium Level 4.3 mmol/L (3.5-5.1) Chloride Level 109 mmol/L (98-107) Carbon Dioxide Level 25 mmol/L (21-32) Anion Gap 8 (6-14) Blood Urea Nitrogen 16 mg/dL (7-20) Creatinine 0.7 mg/dL (0.6-1.0) Estimated GFR (Cockcroft-Gault) 83.2 Glucose Level 69 mg/dL (70-99) Calcium Level 7.9 mg/dL (8.5-10.1) Phosphorus Level 3.3 mg/dL (2.6-4.7) Magnesium Level 2.0 mg/dL (1.8-2.4) Test 08/18/21 08:05 Glucose (Fingerstick) 108 mg/dL (70-99) Comment Review of Relevant I have reviewed the following items nora (where applicable) has been applied. Medications: Current Medications Medications (Trade) Dose Ordered Sig/Jerson Route PRN Reason Start Time Stop Time Status Last Admin Dose Admin Divalproex Sodium (Depakote) 500 mg BID PO 08/17/21 12:00 08/17/21 20:53 Gabapentin (Neurontin) 400 mg TID PO 08/17/21 14:00 08/18/21 08:16 Aripiprazole (Abilify) 30 mg HS PO 08/17/21 21:00 08/17/21 20:53 Levothyroxine Sodium (Synthroid) 250 mcg DAILY06 PO 08/17/21 12:00 08/18/21 05:39 Rivaroxaban (Xarelto) 20 mg DAILYWSUP PO 08/17/21 17:00 08/17/21 15:58 Sertraline HCl (Zoloft) 150 mg DAILY PO 08/17/21 12:00 08/18/21 08:16 Justifications for Admission Other Justification Trauma activation with pubic rami fracture MAKEDA YANCEY MD August 18, 2021 10:44
[2021-08-18] MEDS: ANTI-COAG MONITOR BY PHARMACY. MC PRN (10:47)
[2021-08-18 11:00] VITALS: BP 135/52
[2021-08-18 15:00] VITALS: BP 133/64
[2021-08-18] MEDS: RIVAROXABAN 10 MG TABLET. PO SCH (17:05)
[2021-08-18 19:00] VITALS: BP 142/63
[2021-08-18] MEDS: ARIPiprazole 5 MG TABLET PO SCH (21:22)
[2021-08-18 23:00] VITALS: BP 142/81
[2021-08-19] MEDS: IV NORMAL SALINE 1000ML BAG 1,000 ML IV SCH ×3 (00:52→21:04)
[2021-08-19 03:00] VITALS: BP 162/75
[2021-08-19 04:47] LABS: BASO % 0 % (0-3); EOS # 0.3 x10^3/uL (0.0-0.7); EOS % 5 % (0-3); HEMATOCRIT 30.4 % (36.0-47.0); HEMOGLOBIN 10.1 g/dL (12.0-15.5); LYMPH # 1.3 x10^3/uL (1.0-4.8); LYMPH % 19 % (24-48); MEAN CORPUSCULAR HEMOGLOBIN 27 pg (25-35); MEAN CORPUSCULAR HGB CONC 33 g/dL (31-37); MEAN CORPUSCULAR VOLUME 82 fL (79-100); MONO # 0.8 x10^3/uL (0.0-1.1); MONO % 11 % (0-9); NEUT # 4.3 x10^3/uL (1.8-7.7); NEUT % 65 % (31-73); PLATELET COUNT 122 x10^3/uL (140-400); RED BLOOD COUNT 3.73 x10^6/uL (3.50-5.40); WHITE BLOOD COUNT 6.7 x10^3/uL (4.0-11.0)
[2021-08-19 05:05] LABS: CALCIUM 7.6 mg/dL (8.5-10.1); CREATININE 0.8 mg/dL (0.6-1.0); GFR 71.3; MAGNESIUM 1.9 mg/dL (1.8-2.4)
[2021-08-19] MEDS: LEVOTHYROXINE 125 MCG TABLET PO SCH (05:50)
[2021-08-19 07:00] VITALS: BP 150/59
--- NOTE | 2021-08-19 07:47 | PDOC ---
Progress Note Subjective Subjective resting comfortable in bed. no complaints. has mobilized and taken a couple of steps. inquiring about discharging to SNF ROS ROS No nausea No vomiting No pain No rash Vital Sign Vital Signs Vital Signs Date Time Temp Pulse Resp B/P (MAP) Pulse Ox O2 Delivery O2 Flow Rate FiO2 08/19/21 03:00 98.1 64 18 162/75 (104) 93 Room Air 98.1 Physical Exam PHYSICAL EXAM pain with motion of right hip. calves soft and nontender. motor and sensory intact distally. Labs Lab Laboratory Tests Test 08/18/21 08:05 08/18/21 11:54 08/18/21 16:41 08/18/21 20:28 Glucose (Fingerstick) 108 mg/dL (70-99) 95 mg/dL (70-99) 103 mg/dL (70-99) 153 mg/dL (70-99) Test 08/19/21 04:00 White Blood Count 6.7 x10^3/uL (4.0-11.0) Red Blood Count 3.73 x10^6/uL (3.50-5.40) Hemoglobin 10.1 g/dL (12.0-15.5) Hematocrit 30.4 % (36.0-47.0) Mean Corpuscular Volume 82 fL (79-100) Mean Corpuscular Hemoglobin 27 pg (25-35) Mean Corpuscular Hemoglobin Concent 33 g/dL (31-37) Red Cell Distribution Width 16.0 % (11.5-14.5) Platelet Count 122 x10^3/uL (140-400) Neutrophils (%) (Auto) 65 % (31-73) Lymphocytes (%) (Auto) 19 % (24-48) Monocytes (%) (Auto) 11 % (0-9) Eosinophils (%) (Auto) 5 % (0-3) Basophils (%) (Auto) 0 % (0-3) Neutrophils # (Auto) 4.3 x10^3/uL (1.8-7.7) Lymphocytes # (Auto) 1.3 x10^3/uL (1.0-4.8) Monocytes # (Auto) 0.8 x10^3/uL (0.0-1.1) Eosinophils # (Auto) 0.3 x10^3/uL (0.0-0.7) Basophils # (Auto) 0.0 x10^3/uL (0.0-0.2) Sodium Level 142 mmol/L (136-145) Potassium Level 4.0 mmol/L (3.5-5.1) Chloride Level 110 mmol/L (98-107) Carbon Dioxide Level 26 mmol/L (21-32) Anion Gap 6 (6-14) Blood Urea Nitrogen 18 mg/dL (7-20) Creatinine 0.8 mg/dL (0.6-1.0) Estimated GFR (Cockcroft-Gault) 71.3 Glucose Level 82 mg/dL (70-99) Calcium Level 7.6 mg/dL (8.5-10.1) Magnesium Level 1.9 mg/dL (1.8-2.4) Objective Assessment right superior and inferior pubic rami fractures Plan Plan of Care wbat right lower extremity case management for discharge planning follow up with me 2 weeks for xray review: Dr. Cristian Landaverde [facility] [phone] for appointment and questions/concerns. Justifications for Admission Other Justification Trauma activation with pubic rami fracture CRISTIAN LANDAVERDE DO August 19, 2021 07:47
[2021-08-19] MEDS: GABAPENTIN 400 MG CAPSULE. PO SCH ×3 (08:16→21:01)
[2021-08-19] MEDS: DIVALPROEX DELAYED RELEASE 500 MG TABLET.DR. PO SCH ×2 (08:16→21:00)
[2021-08-19] MEDS: SERTRALINE 50 MG TABLET. PO SCH (08:16)
[2021-08-19] MEDS: HYDROcodone/APAP 5/325MG 1 TAB TABLET PO PRN ×4 (08:16→22:54)
[2021-08-19 11:00] VITALS: BP 140/51
--- NOTE | 2021-08-19 11:19 | PDOC ---
[facility] PROGRESS NOTE Date of Service DOS: DATE: 08/19/21 TIME: 11:19 Chief Complaint Chief Complaint Assessment/Plan Fall from standing height Acute pubic rami fracture Normocytic anemia Thrombocytopenia History of rheumatoid arthritis History of atrial fibrillation on Xarelto Appreciate Ortho recommendationsweightbearing as tolerated and nonoperative management General surgery consult for trauma PT OT evaluation Fall precautions SCD only for DVT prophylaxis Cardiac diet CODE STATUS full Discussed with RN and SW Disposition inpatient management as above DPOA: History of Present Illness History of Present Illness 66 year old female who presents as a trauma activation after suffering a ground-level fall. Patient apparently fell 24 hours ago. She had plain films done at her nursing facility today which revealed right sided superior and inferior pubic rami fractures. She was subsequently transferred here for further evaluation. Patient states that she did hit her head but denies loss conscious. She does take Coumadin. She also has a contusion to her right elbow. She denies any other pain or injury at this time. 08/18/2021 No acute events overnight. Patient seen examined bedside. Pain is well controlled. Resting comfortably. Sugars of 69 today requiring hypoglycemia protocol. Surgery evaluated and signed off. Continued PT OT evaluation. Patient will likely need rehab. Patient's chart, labs, images were reviewed and discussed with RN 08/19/2021 No acute events overnight. Patient seen examined bedside. Working with PT well. Tolerating diet. Pain is well controlled. Patient's chart, labs, images were reviewed and discussed with RN Vitals/I&O Vitals/I&O: Vital Signs Date Time Temp Pulse Resp B/P (MAP) Pulse Ox O2 Delivery O2 Flow Rate FiO2 08/19/21 11:00 98.1 73 18 140/51 (80) 94 Room Air 98.1 Physical Exam Physical Exam: pain with motion of right hip. calves soft and nontender. motor and sensory intact distally. General: Alert, Oriented X3, Cooperative Heart: Regular rate Lungs: Clear Abdomen: Soft, No tenderness, No masses Extremities: Other (some peripheral edema noted, bilateral lower extremity venous stasis change, clean superficial venous stasis ulcer right lower extremity) Skin: No rashes Labs Labs: Laboratory Tests Test 08/18/21 11:54 08/18/21 16:41 08/18/21 20:28 08/19/21 04:00 Glucose (Fingerstick) 95 mg/dL (70-99) 103 mg/dL (70-99) 153 mg/dL (70-99) White Blood Count 6.7 x10^3/uL (4.0-11.0) Red Blood Count 3.73 x10^6/uL (3.50-5.40) Hemoglobin 10.1 g/dL (12.0-15.5) Hematocrit 30.4 % (36.0-47.0) Mean Corpuscular Volume 82 fL (79-100) Mean Corpuscular Hemoglobin 27 pg (25-35) Mean Corpuscular Hemoglobin Concent 33 g/dL (31-37) Red Cell Distribution Width 16.0 % (11.5-14.5) Platelet Count 122 x10^3/uL (140-400) Neutrophils (%) (Auto) 65 % (31-73) Lymphocytes (%) (Auto) 19 % (24-48) Monocytes (%) (Auto) 11 % (0-9) Eosinophils (%) (Auto) 5 % (0-3) Basophils (%) (Auto) 0 % (0-3) Neutrophils # (Auto) 4.3 x10^3/uL (1.8-7.7) Lymphocytes # (Auto) 1.3 x10^3/uL (1.0-4.8) Monocytes # (Auto) 0.8 x10^3/uL (0.0-1.1) Eosinophils # (Auto) 0.3 x10^3/uL (0.0-0.7) Basophils # (Auto) 0.0 x10^3/uL (0.0-0.2) Sodium Level 142 mmol/L (136-145) Potassium Level 4.0 mmol/L (3.5-5.1) Chloride Level 110 mmol/L (98-107) Carbon Dioxide Level 26 mmol/L (21-32) Anion Gap 6 (6-14) Blood Urea Nitrogen 18 mg/dL (7-20) Creatinine 0.8 mg/dL (0.6-1.0) Estimated GFR (Cockcroft-Gault) 71.3 Glucose Level 82 mg/dL (70-99) Calcium Level 7.6 mg/dL (8.5-10.1) Magnesium Level 1.9 mg/dL (1.8-2.4) Test 08/19/21 07:18 Glucose (Fingerstick) 84 mg/dL (70-99) Comment Review of Relevant I have reviewed the following items nora (where applicable) has been applied. Justifications for Admission Other Justification Trauma activation with pubic rami fracture MAKEDA YANCEY MD August 19, 2021 11:19
[2021-08-19] MEDS: ANTI-COAG MONITOR BY PHARMACY. MC PRN (12:20)
[2021-08-19] MEDS: RIVAROXABAN 10 MG TABLET. PO SCH (14:37)
[2021-08-19 15:00] VITALS: BP 131/60
[2021-08-19 19:15] VITALS: BP 151/74
[2021-08-19] MEDS: ARIPiprazole 5 MG TABLET PO SCH (21:01)
[2021-08-19 23:34] VITALS: BP 158/70
[2021-08-20 03:02] VITALS: BP 154/68
[2021-08-20] MEDS: LEVOTHYROXINE 125 MCG TABLET PO SCH (06:12)
[2021-08-20] MEDS: IV NORMAL SALINE 1000ML BAG 1,000 ML IV SCH ×2 (06:15→19:00)
[2021-08-20] MEDS: HYDROcodone/APAP 5/325MG 1 TAB TABLET PO PRN ×4 (06:18→21:21)
[2021-08-20 07:04] VITALS: BP 158/68
[2021-08-20 08:30] LABS: BASO % 0 % (0-3); EOS # 0.3 x10^3/uL (0.0-0.7); EOS % 6 % (0-3); HEMATOCRIT 29.9 % (36.0-47.0); HEMOGLOBIN 9.9 g/dL (12.0-15.5); LYMPH # 1.1 x10^3/uL (1.0-4.8); LYMPH % 20 % (24-48); MEAN CORPUSCULAR HEMOGLOBIN 27 pg (25-35); MEAN CORPUSCULAR HGB CONC 33 g/dL (31-37); MEAN CORPUSCULAR VOLUME 82 fL (79-100); MONO # 0.6 x10^3/uL (0.0-1.1); MONO % 10 % (0-9); NEUT # 3.5 x10^3/uL (1.8-7.7); NEUT % 64 % (31-73); PLATELET COUNT 126 x10^3/uL (140-400); RED BLOOD COUNT 3.66 x10^6/uL (3.50-5.40); RED CELL DISTRIBUTION WIDTH 15.9 % (11.5-14.5); WHITE BLOOD COUNT 5.4 x10^3/uL (4.0-11.0)
[2021-08-20 08:58] LABS: CALCIUM 7.8 mg/dL (8.5-10.1); CREATININE 0.7 mg/dL (0.6-1.0); GFR 83.2; MAGNESIUM 1.9 mg/dL (1.8-2.4); POTASSIUM 4.1 mmol/L (3.5-5.1)
[2021-08-20] MEDS: DIVALPROEX DELAYED RELEASE 500 MG TABLET.DR. PO SCH ×2 (09:00→21:00)
[2021-08-20] MEDS: GABAPENTIN 400 MG CAPSULE. PO SCH ×3 (09:05→21:21)
[2021-08-20] MEDS: SERTRALINE 50 MG TABLET. PO SCH (09:06)
[2021-08-20 11:15] VITALS: BP 136/50
--- NOTE | 2021-08-20 11:38 | PDOC ---
[facility] PROGRESS NOTE Date of Service DOS: DATE: 08/20/21 TIME: 11:36 Chief Complaint Chief Complaint Assessment/Plan Fall from standing height Acute pubic rami fracture Normocytic anemia Thrombocytopenia History of rheumatoid arthritis History of atrial fibrillation on Xarelto Appreciate Ortho recommendationsweightbearing as tolerated and nonoperative management General surgery consult for trauma PT OT evaluation Fall precautions SCD only for DVT prophylaxis Cardiac diet CODE STATUS full Discussed with RN and SW Disposition inpatient management as above DPOA: History of Present Illness History of Present Illness 66 year old female who presents as a trauma activation after suffering a ground-level fall. Patient apparently fell 24 hours ago. She had plain films done at her nursing facility today which revealed right sided superior and inferior pubic rami fractures. She was subsequently transferred here for further evaluation. Patient states that she did hit her head but denies loss conscious. She does take Coumadin. She also has a contusion to her right elbow. She denies any other pain or injury at this time. 08/18/2021 No acute events overnight. Patient seen examined bedside. Pain is well controlled. Resting comfortably. Sugars of 69 today requiring hypoglycemia protocol. Surgery evaluated and signed off. Continued PT OT evaluation. Patient will likely need rehab. Patient's chart, labs, images were reviewed and discussed with RN 08/19/2021 No acute events overnight. Patient seen examined bedside. Working with PT well. Tolerating diet. Pain is well controlled. Patient's chart, labs, images were reviewed and discussed with RN 08/20/2021 No acute events overnight. Patient seen examined bedside. No complaints for the patient. Patient does want to go to rehab when able. No concerns or nursing. Patient's chart, labs, images were reviewed and discussed with RN Vitals/I&O Vitals/I&O: Vital Signs Date Time Temp Pulse Resp B/P (MAP) Pulse Ox O2 Delivery O2 Flow Rate FiO2 08/20/21 11:15 97.8 73 16 136/50 (78) 95 Room Air 97.8 I & O 08/19/21 08/19/21 08/20/21 15:00 23:00 07:00 Intake Total 480 ml Balance 480 ml Physical Exam Physical Exam: pain with motion of right hip. calves soft and nontender. motor and sensory intact distally. General: Alert, Oriented X3, Cooperative Heart: Regular rate Lungs: Clear Abdomen: Soft, No tenderness, No masses Extremities: Other (some peripheral edema noted, bilateral lower extremity venous stasis change, clean superficial venous stasis ulcer right lower extremity) Skin: No rashes Labs Labs: Laboratory Tests Test 08/19/21 16:54 08/19/21 21:34 08/20/21 07:10 08/20/21 07:36 Glucose (Fingerstick) 115 mg/dL (70-99) 150 mg/dL (70-99) 77 mg/dL (70-99) White Blood Count 5.4 x10^3/uL (4.0-11.0) Red Blood Count 3.66 x10^6/uL (3.50-5.40) Hemoglobin 9.9 g/dL (12.0-15.5) Hematocrit 29.9 % (36.0-47.0) Mean Corpuscular Volume 82 fL (79-100) Mean Corpuscular Hemoglobin 27 pg (25-35) Mean Corpuscular Hemoglobin Concent 33 g/dL (31-37) Red Cell Distribution Width 15.9 % (11.5-14.5) Platelet Count 126 x10^3/uL (140-400) Neutrophils (%) (Auto) 64 % (31-73) Lymphocytes (%) (Auto) 20 % (24-48) Monocytes (%) (Auto) 10 % (0-9) Eosinophils (%) (Auto) 6 % (0-3) Basophils (%) (Auto) 0 % (0-3) Neutrophils # (Auto) 3.5 x10^3/uL (1.8-7.7) Lymphocytes # (Auto) 1.1 x10^3/uL (1.0-4.8) Monocytes # (Auto) 0.6 x10^3/uL (0.0-1.1) Eosinophils # (Auto) 0.3 x10^3/uL (0.0-0.7) Basophils # (Auto) 0.0 x10^3/uL (0.0-0.2) Sodium Level 145 mmol/L (136-145) Potassium Level 4.1 mmol/L (3.5-5.1) Chloride Level 110 mmol/L (98-107) Carbon Dioxide Level 25 mmol/L (21-32) Anion Gap 10 (6-14) Blood Urea Nitrogen 16 mg/dL (7-20) Creatinine 0.7 mg/dL (0.6-1.0) Estimated GFR (Cockcroft-Gault) 83.2 Glucose Level 71 mg/dL (70-99) Calcium Level 7.8 mg/dL (8.5-10.1) Magnesium Level 1.9 mg/dL (1.8-2.4) Test 08/20/21 11:27 Glucose (Fingerstick) 132 mg/dL (70-99) Comment Review of Relevant I have reviewed the following items nora (where applicable) has been applied. Justifications for Admission Other Justification Trauma activation with pubic rami fracture MAKEDA YANCEY MD August 20, 2021 11:38
--- NOTE | 2021-08-20 15:14 | NUR ---
Wound/Ostomy Care Wound Type/Assessment: Patient seen per wound care consult. See wound assessment. Patient has stasis ulcer to the left posterior lower leg and right anterior leg, patient has healed wound to neck that we protected with bandaid per patient request. Patient stated she been diagnosed with lymphedema as well. Wounds cleansed, assessed, measured, and pictured. Patient stated she has had care for these wounds at the [facility] she resides, and that she wears medi-optimization consultant for compression. The right lower leg is slough with some granulation, and the left posterior lower leg that is superficial with some epithelization. Treatment Recommendations/Plan: Cleanse wounds and pat dry. Recommendations for Hydrofera Blue and covered with foam dressings to right lower leg and then contact layer with foam dressing to the left posterior lower leg. Change on Thursday and Thursday. Bandaid applied to left neck for protection. Wound care will follow up on 08/28/21. Education provided: Patient educated on dressing changes and PU prevention. Offloading surface/device: Patient has a P-500 bed. Recommended Referrals/Tests: N/A Discharge Recommendations for dressings: Dressing change instructions left in room, as well as extra HFB and contact layer. No other wounds noted. Patient in chair and call light in reach.
[2021-08-20 15:19] VITALS: BP 143/63
[2021-08-20] MEDS: RIVAROXABAN 10 MG TABLET. PO SCH (15:58)
[2021-08-20 19:00] VITALS: BP 144/68
[2021-08-20] MEDS: ARIPiprazole 5 MG TABLET PO SCH (21:20)
== END 2021-08-21 | DRG 536 ==
LOC: ER 23:49 → 4 NORTH 08-17 02:10
PROVIDERS: ADMIT Internal Medicine; ATTEND Internal Medicine
DX: S32.591A Other specified fracture of right pubis, initial encounter for closed fracture (principal); N17.9 Acute kidney failure, unspecified; D64.9 Anemia, unspecified; D69.6 Thrombocytopenia, unspecified; E11.9 Type 2 diabetes mellitus without complications; E78.5 Hyperlipidemia, unspecified; F20.9 Schizophrenia, unspecified; I48.91 Unspecified atrial fibrillation; M06.9 Rheumatoid arthritis, unspecified; M41.9 Scoliosis, unspecified; M43.12 Spondylolisthesis, cervical region; Z82.49 Family history of ischemic heart disease and other diseases of the circulatory system; F32.A Depression, unspecified; W18.39XA Other fall on same level, initial encounter; Y93.89 Activity, other specified; Y92.89 Other specified places as the place of occurrence of the external cause; Y99.8 Other external cause status; Z90.49 Acquired absence of other specified parts of digestive tract; Z88.0 Allergy status to penicillin
CPT/HCPCS: 36415; 70450; 72125; 72170; 73060; 73080; 73090; 80048; 80053; 82962; 83735; 84100; 85025; 85610; 85730; 86850; 86900; 86901; J7030; U0003; 97110-GP; 97116-GP; 97530-GP; 97535-GO; 99285-25; G0378